=== PATIENT | female | born 1950 | race Hispanic/Latino ===

== ENCOUNTER 2017-05-15 11:39 | Emergency (ER) | payer MEDICARE ==
--- NOTE | 2017-05-15 14:21 | RAD REPORT ---
EXAM DESCRIPTION: RAD - Knee Right 3 View - 05/15/2017 1:46 pm CLINICAL HISTORY: Knee pain and swelling COMPARISON: None. FINDINGS: No fracture, dislocation or periosteal reaction.Moderate joint effusion is present. No chapito nt space narrowing. Degenerative meniscal calcifications are present. No air or foreign body in the s oft tissues. IMPRESSION: Degenerative meniscal changes are present. Moderate joint effusion. Clinical concerns for internal derangement or occult bony injury could be further assessed with MR im aging.
[2017-05-15] MEDS ORDERED: IBUPROFEN 400 MG TAB ONE (14:34)
--- NOTE | 2017-05-15 14:49 | ER ---
Nurse's Notes [facility] Name: Marilin Conner Age: 66 yrs Sex: Female : 1950 Arrival Date: 05/15/2017 Time: 11:44 Bed 25 [facility] MD: Diagnosis: Effusion, right knee Presentation: 05/15 12:08 Presenting complaint: Friend states: " She has been having leg trouble for a while and ph last night it got worse. She is having trouble walking and it feels like she has fluid in there." Pt reports pain in R calve that radiates up leg, swelling noted to outer aspect of R calve. Pt also reports SOB at rest, denies cardiac hx. Transition of care: patient was not received from another setting of care. Onset of symptoms was May 15, 2017. Care prior to arrival: None. 12:08 Method Of Arrival: Wheelchair ph 12:08 Acuity: JUAN C 3 ph Historical: - Allergies: 12:16 Demerol; ph - Home Meds: 12:16 mirtazapine 15 mg Oral tab 1 tab once daily [Active]; citalopram 10 mg tab 1.5 tab once ph daily [Active]; Bystolic 20 mg oral tab 1 tab once daily [Active]; losartan 100 mg oral tab 1 tab once daily [Active]; - PMHx: 12:16 Depression; Hypertension; ph - PSHx: 12:16 Hysterectomy; back surgery; ph - Immunization history:: Adult Immunizations unknown. - Social history:: Smoking status: Patient/guardian denies using tobacco. Screenin:17 Abuse screen: Denies threats or abuse. Denies injuries from another. Nutritional kr2 screening: No deficits noted. Tuberculosis screening: No symptoms or risk factors identified. Fall Risk Fall in past 12 months (25 points). Assessment: 14:09 General: Appears in no apparent distress. comfortable, well groomed, well developed, kr2 well nourished, Behavior is calm, cooperative, appropriate for age. Pain: Complains of pain in right knee Pain radiates to right leg Pain currently is 8 out of 10 on a pain scale. Quality of pain is described as aching, Is continuous, Alleviated by medications, rest, Aggravated by increased activity, weight bearing. Neuro: Level of Consciousness is awake, alert, obeys commands, Oriented to person, place, time, situation, Appropriate for age. Cardiovascular: Capillary refill < 3 seconds in bilateral fingers Patient's skin is warm and dry. Respiratory: Airway is patent Respiratory effort is even, unlabored, Respiratory pattern is regular, symmetrical. GI: Abdomen is flat, non-distended. : No signs and/or symptoms were reported regarding the genitourinary system. EENT: Nares are clear bilaterally Oral mucosa is moist. Derm: Skin is intact, is healthy with good turgor, Skin is pink, warm \\T\\ dry. Musculoskeletal: Swelling present in right knee. Injury Description: Patient reports falling 2 weeks ago and going about her normal activities and pain suddenly got worse and intense. 14:21 Reassessment: Patient appears in no apparent distress at this time. Patient and/or kr2 family updated on plan of care and expected duration. Pain level reassessed. Patient is alert, oriented x 3, equal unlabored respirations, skin warm/dry/pink. Assisted patient to restroom then back to bed, ultrasound in patient's room now. Vital Signs: 12:12 BP 162 / 68; Pulse 59; Resp 18; Temp 97.7; Pulse Ox 97% on R/A; Weight 63.5 kg; Pain ph 10/10; 15:11 BP 144 / 64; Pulse 60; Resp 17; Pulse Ox 99% on R/A; kr2 ED Course: 11:44 Patient arrived in ED. as 12:12 Triage completed. ph 12:16 Arm band placed on. ph 13:04 Mendy Garcia FNP-C is [facility]. kb 13:05 Burton Saavedra MD is Attending Physician. kb 13:19 Traci Ac, SARAH is Primary Nurse. kr2 14:17 Patient has correct armband on for positive identification. Bed in low position. Call kr2 light in reach. Side rails up X2. Adult w/ patient. Pulse ox on. NIBP on. Door closed. Lights dimmed. Warm blanket given. Head of bed elevated. 14:20 Ultrasound completed. Patient tolerated well. Notified BAR POINTER/PA mendy. sg3 15:12 No provider procedures requiring assistance completed. Patient did not have IV access kr2 during this emergency room visit. Administered Medications: 14:18 Drug: Ibuprofen 800 mg Route: PO; kr2 15:11 Follow up: Response: No adverse reaction; Pain is decreased kr2 Outcome: 14:49 Discharge ordered by MD. cook 15:12 Discharged to home via wheelchair, with family. kr2 15:12 Condition: good 15:12 Discharge instructions given to patient, family, Instructed on discharge instructions, follow up and referral plans. crutch walking, knee immobilizer use and care Demonstrated understanding of instructions, follow-up care, crutch walking, knee immobilizer care 15:13 Patient left the ED. kr2 Signatures: Mendy Garcia, CASUAL SHOE INSPECTOR-C CASUAL SHOE INSPECTOR-Shanti Chandler Patricia, SARAH RN ph Traci Ac RN RN kr2 Holly Rodriguez 3
--- NOTE | 2017-05-15 14:49 | EDPHYS ---
Physician Documentation [facility] Name: Marilin Conner Age: 66 yrs Sex: Female : 1950 Arrival Date: 05/15/2017 Time: 11:44 Bed 25 Private MD: ED Physician Burton Saavedra HPI: 05/15 13:17 This 66 yrs old Female presents to ER via Wheelchair with complaints of Knee kb Pain. 13:17 The patient presents with pain, that is acute, swelling, tenderness. The complaints kb affect the right knee. Context: The problem was sustained at home, resulted from an unknown cause, the patient can partially bear weight, must have assistance. Onset: The symptoms/episode began/occurred 4 day(s) ago, and became worse this morning. Modifying factors: The symptoms are alleviated by nothing. the symptoms are aggravated by movement, weight bearing, bending knee. Associated signs and symptoms: Pertinent positives: swelling, Pertinent negatives calf tenderness, fever, nausea, numbness, rash, tingling, vomiting, warmth, weakness. Treatment prior to arrival includes: no previous treatment. Severity of symptoms: At their worst the symptoms were moderate, in the emergency department the symptoms are unchanged. The patient has not experienced similar symptoms in the past. The patient has not recently seen a physician. Pt states she fell 3 weeks ago and started having right knee pain and swelling 4 days ago, worse today. Also reports knot on right calf that is painful. Historical: - Allergies: 12:16 Demerol; ph - Home Meds: 12:16 mirtazapine 15 mg Oral tab 1 tab once daily [Active]; citalopram 10 mg tab 1.5 tab once ph daily [Active]; Bystolic 20 mg oral tab 1 tab once daily [Active]; losartan 100 mg oral tab 1 tab once daily [Active]; - PMHx: 12:16 Depression; Hypertension; ph - PSHx: 12:16 Hysterectomy; back surgery; ph - Immunization history:: Adult Immunizations unknown. - Social history:: Smoking status: Patient/guardian denies using tobacco. ROS: 13:17 Constitutional: Negative for fever, chills, and weight loss, Cardiovascular: Negative kb for chest pain, palpitations, and edema, Respiratory: Negative for shortness of breath, cough, wheezing, and pleuritic chest pain, Abdomen/GI: Negative for abdominal pain, nausea, vomiting, diarrhea, and constipation, Back: Negative for injury and pain, : Negative for injury, bleeding, discharge, and swelling, Skin: Negative for injury, rash, and discoloration, Neuro: Negative for headache, weakness, numbness, tingling, and seizure. 13:17 MS/extremity: Positive for decreased range of motion, pain, swelling, tenderness, of the right knee. Exam: 13:17 Constitutional: This is a well developed, well nourished patient who is awake, alert, kb and in no acute distress. Head/Face: Normocephalic, atraumatic. Chest/axilla: Normal chest wall appearance and motion. Nontender with no deformity. No lesions are appreciated. Cardiovascular: Regular rate and rhythm with a normal S1 and S2. No gallops, murmurs, or rubs. Normal PMI, no JVD. No pulse deficits. Respiratory: Lungs have equal breath sounds bilaterally, clear to auscultation and percussion. No rales, rhonchi or wheezes noted. No increased work of breathing, no retractions or nasal flaring. Abdomen/GI: Soft, non-tender, with normal bowel sounds. No distension or tympany. No guarding or rebound. No evidence of tenderness throughout. Back: No spinal tenderness. No costovertebral tenderness. Full range of motion. Skin: Warm, dry with normal turgor. Normal color with no rashes, no lesions, and no evidence of cellulitis. Neuro: Awake and alert, GCS 15, oriented to person, place, time, and situation. Cranial nerves II-XII grossly intact. Motor strength 5/5 in all extremities. Sensory grossly intact. Cerebellar exam normal. Normal gait. 13:17 Musculoskeletal/extremity: Extremities: grossly normal except: noted in the right knee: decreased ROM, pain, swelling, tenderness, ROM: limited active range of motion due to pain, in the right knee, Circulation is intact in all extremities. Sensation intact. Weight bearing: can bear weight with assistance only. Vital Signs: 12:12 BP 162 / 68; Pulse 59; Resp 18; Temp 97.7; Pulse Ox 97% on R/A; Weight 63.5 kg; Pain ph 10/10; 15:11 BP 144 / 64; Pulse 60; Resp 17; Pulse Ox 99% on R/A; kr2 MDM: 13:05 Patient medically screened. kb 13:17 Data reviewed: vital signs, nurses notes. Data interpreted: Pulse oximetry: on room air kb is 97 %. Interpretation: normal. Counseling: I had a detailed discussion with the patient and/or guardian regarding: the historical points, exam findings, and any diagnostic results supporting the discharge/admit diagnosis, radiology results, the need for outpatient follow up, a orthopedic surgeon, to return to the emergency department if symptoms worsen or persist or if there are any questions or concerns that arise at home. 05/15 13:10 Order name: Knee Right 3 View XRAY kb 05/15 13:10 Order name: US Extremity Venous Uni Ltd kb 05/15 14:21 Order name: RAD; Complete Time: 14:42 EDMS 05/15 14:48 Order name: Knee Immobilizer; Complete Time: 15:11 kb 05/15 14:48 Order name: Crutches; Complete Time: 15:11 kb Administered Medications: 14:18 Drug: Ibuprofen 800 mg Route: PO; kr2 15:11 Follow up: Response: No adverse reaction; Pain is decreased kr2 Disposition: 05/15/17 14:49 Discharged to Home. Impression: Effusion, right knee. - Condition is Stable. - Discharge Instructions: Knee Effusion, [id number]. - Medication Reconciliation Form, Thank You Letter, Antibiotic Education, Prescription Opioid Use form. - Follow up: Emergency Department; When: As needed; Reason: Worsening of condition. Follow up: Private Physician; When: 2 - 3 days; Reason: Recheck today's complaints, Continuance of care, Re-evaluation by your physician. Addendum: 05/19/2017 07:14 Co-signature as Attending Physician, Burton Saavedra MD. g s Signatures: Dispatcher [employer] [facility] Mendy Garcia, JEET-Meche WILLISP-Vicki Sesay, RN RN Burton Chin MD MD gs Reaves, Karey, RN RN kr2
[2017-05-15 15:19] VITALS: TEMP 97.7
--- NOTE | 2017-05-15 15:19 | RAD REPORT ---
EXAM DESCRIPTION: VAS - Extremity Venous Uni Ltd - 05/15/2017 2:55 pm CLINICAL HISTORY: Leg pain and swelling COMPARISON: None. TECHNIQUE: Real-time sonographic evaluation of the right lower extremity deep venous systems was per formed. FINDINGS: Normal compressibility, flow augmentation, phasic flow and spontaneous flow are identified in the right lower extremity deep venous system. No intraluminal filling defects seen. Images are inadvertently labeled left. Examination was performed of the right lower extremity. IMPRESSION: No DVT in the right lower extremity.
[2017-05-15 15:21] VITALS: BP 144/64; O2SAT 99
== END 2017-05-15 15:13 | disposition home or self-care (01) ==
LOC: ER 11:39
DX: M25.461 Effusion, right knee (principal); W19.XXXA Unspecified fall, initial encounter; I10 Essential (primary) hypertension; F32.9 Major depressive disorder, single episode, unspecified; Z88.5 Allergy status to narcotic agent
CPT/HCPCS: 93971; 99284

== ENCOUNTER 2019-08-25 18:42 | Emergency (ER) | payer MEDICARE ==
--- OUTSIDE RECORDS SUMMARY | 2019-08-25 18:45 | XMS REPORT | Summary of Care ---
:1950 Author Organization [facility] Address [address] [place] [id number] Care Team Providers Name Role Phone Pcp, Patient Does Not Have A Primary Care Provider +[id number] Encounter Details Date Type Department Care Team Description 08/10/2019 Hospital Encounter [facility] Felipe Chambers MD Canceled (PATIENT Xiang [place] [address] [facility] [address] ) [address] [place] [place] [address] [address] [place], [place] [phone] Allergies Not on Filedocumented as of this encounter (statuses as of 08/11/2019) Medications Not on filedocumented as of this encounter (statuses as of 08/11/2019) Active Problems Not on filedocumented as of this encounter (statuses as of 08/11/2019) Social History Tobacco Use Types Packs/Day Years Used Date Never Assessed Sex Assigned at Date Recorded Not on file Job Start Date Occupation Industry Not on file Not on file Not on file Travel History Travel Start Travel End No recent travel history available. COVID-19 Exposure Response Date Recorded In the last month, have you been in contact with No / Unsure 08/10/2019 8:39 AM CDT someone who was confirmed or suspected to have Coronavirus / COVID-19? documented as of this encounter Last Filed Vital Signs Not on filedocumented in this encounter Plan of Treatment Health Maintenance Due Date Last Done Comments HEPATITIS C (HCV) SCREEN 1950 DTaP,Tdap,and Td Vaccines (1 - Tdap) 1961 Depression Screening 1962 Breast Cancer Screening (MAMMOGRAM) 1990 COLONOSCOPY 2000 Zoster Recombinant Vaccine (SHINGRIX) (1 of 2) 2000 Medicare Wellness Visit 12/09/2015 Osteoporosis Screening 12/09/2015 PNEUMOCOCCAL VACCINES 65+ (1 of 2 - PCV13) 12/09/2015 INFLUENZA VACCINE (Season Ended) 2019 documented as of this encounter Procedures Procedure Name Priority Date/Time Associated Diagnosis Comme nts NOTICE OF PRIVACY Routine 08/10/2019 8:42 AM PRACTICES CDT CONSENT/REFUSAL FOR Routine 08/10/2019 8:41 AM DIAGNOSIS AND TREATMENT CDT ASSIGNMENT OF BENEFITS Routine 08/10/2019 8:41 AM CDT documented in this encounter Results Not on filedocumented in this encounter Insurance Payer Benefit Plan / Subscriber ID Effective Phone Address T ype Group [facility] [id number] 2019-Jill fernandez [facility] HEALTHCARE - MEDICARE nt HMO MANAGED MEDICARE ADVANTAGE documented as of this encounter
--- OUTSIDE RECORDS SUMMARY | 2019-08-25 18:45 | XMS REPORT | Continuity of Care Document ---
:1950 Author Organization [facility] t Address [address] [place] [address] Care Team Providers Name Role Phone Reyes CAMPOS, Felipe Emmanuel Attending Clinician Problems Condition Condition Condition Status Onset Resolution Last Treating Co mments Source Name Details Category Date Date Treatment Clinician Date Osteoarthr Osteoarthr Problem Active [facility] itis of itis of [facility] multiple multiple Memori a joints joints l Outpati ent Clinics History of History of Problem Active [facility] fall fall [facility] Degenerati Degenerati Problem Active [facility] on disease on disease Britany kes - of medial of medial Jelani bao meniscus meniscus l of right of right Outpat i knee knee ent Clinics Benign Benign Problem Active [facility] essential essential [facility] - HTN HTN Memoria l Outpati ent Clinics GERD GERD Problem Active [facility] (gastroeso (gastroeso Britany kes - phageal phageal Memoria reflux reflux l disease) disease) Outpat i ent Clinics Hyperlipid Hyperlipid Problem Active [facility] emia emia [facility] Depression Depression Problem Active [facility] with with [facility] - anxiety anxiety Memoria l Outpati ent Clinics Seasonal Seasonal Problem Active [facility] allergies allergies [facility] Insomnia Insomnia Problem [facility] Back pain Back pain Problem Active [facility] Prepatella Prepatella Problem Active [facility] r effusion r effusion Britany kes - of right of right Memori a knee knee l Outpati ent Clinics Pain in Pain in Problem Active [facility] right knee right knee [facility]any kes - Memoria l Outpati ent Clinics Herniated Herniated Problem Active [facility] interverte interverte Britany kes - bral disc bral disc Jelani bao of lumbar of lumbar l spine spine [facility] Nicotine Nicotine Problem Active [facility] dependence dependence Britany kes - Memoria l [facility] Other Other Problem Active [facility] chronic chronic [facility] - pain pain Memoria l [facility] CKD CKD Problem Active [facility] (chronic (chronic [facility] - kidney kidney Memoria disease), disease), l stage III stage III Outp [facility] Clinics Screening Screening Diagnosis Active [facility] for for [facility] - malignant malignant Jelani bao neoplasm neoplasm l of breast of breast Outp [facility] ent Clinics Screening Screening Diagnosis Active [facility] for for [facility] - osteoporos osteoporos Me moria is is l [facility] Stress due Stress due Diagnosis Active [facility] to illness to illness Britany kes - of family of family Jelani bao member member l [facility] Anxiety Anxiety Problem Active [facility] Moderately Moderately Problem Active [facility] Allergies, Adverse Reactions, Alerts Allergy Allergy Status Severity Reaction(s) Onset Inactive Treating Comm ents Source Name Type Date Date Clinician Demerol Adverse Active Info Not [facility] Reaction [facility] Lisinopr Adverse Active Info Not [facility] il Reaction Available [facility] Medications Ordered Filled Start Stop Current Ordering Indication Dosage Frequency Signature Comments Components Source Medication Medication Date Date Medication? Clinician (SIG) Name Name Telmisartan Telmisartan Yes Na Coates [address] [facility] Cetirizine Cetirizine Yes Na Coates [address] [facility] [address] HCl HCl [facility] Clonidine Clonidine Yes Na Coates [address] [facility] HCl HCl at bedtime [facility] Mirtazapine Mirtazapine Yes Na Coates [address] [facility] at bedtime [facility] Bystolic Bystolic Yes Na Coates TAKE [address] TABLET BY [facility] - MOUTH ONCE Memoria A DAY l [facility] Xanax Xanax Yes Na Coates [address] [address] kes - Memoria l Outpati ent Clinics Telmisartan Telmisartan Yes Na Coates [address] [facility] Celexa Celexa Yes Na Coates TAKE [address] [facility] TABLET BY [facility] - MOUTH ONCE Memoria A DAY l Outpati ent Clinics Bystolic Bystolic Yes Na Coates [address] [facility] Pantoprazol Pantoprazol Yes Na Coates TAKE [address] [facility] e Sodium e Sodium TABLET BY Britany kes - MOUTH ONCE Memoria A DAY l Outpati ent Clinics Pantoprazol Pantoprazol Yes Na Coates [address] e Sodium e Sodium [facility] Rosuvastati Rosuvastati Yes Na Coates TAKE [address] [facility] n Calcium n Calcium TABLET BY [facility] - MOUTH ONCE Memoria A DAY l Outpati ent Clinics Flonase Flonase Yes Na Coates [address] [facility] each [facility] - nostril [facility] l Out[facility] ent Clinics Imitrex Imitrex Yes Na Coates [address] [facility] Immunizations Ordered Filled Immunization Date Status Comments Sourc e Immunization Name Name FluAD FluAD 2019-01-[address] [facility] Procedures This patient has no known procedures. Encounters Start End Encounter Admission Attending Care Care Encounter Source Date/Time Date/Time Type Type Clinicians Facility Department ID 2019-08-14 2019-08-14 [facility] [id number] [address] 13:40:00 13:40:00 [facility] Family Medicine [facility] Outpati ent Clinics 2019-08-10 2019-08-10 [place] [id number] 08:40:00 08:40:00 Encounter M Bowman [id number] [place] [id number] [place] [id number] 2019-08-10 2019-08-10 [facility] [id number] 08:40:00 08:40:00 Encounter M Bowman [id number] [place] [id number] [place] [id number] 2019-04-05 2019-04-05 [facility] [id number] 08:48:00 08:48:[address] [facility] - [address] [facility] Medicine Outpati ent Clinics 2019-01-26 2019-01-26 [facility] [id number] 13:20:00 13:20:[address] [facility] - [address] [facility] Medicine Outpati ent Clinics 2018-12-19 2018-12-19 [facility] [id number] 09:48:00 09:48:00 t [address] [employer] [facility] s - Drive [facility] Medicine Outpati ent Clinics 2018-10-27 2018-10-27 [facility] [id number] [address] 14:00:00 14:00:00 t [address] [employer] s - Drive [facility] Medicine Outpati ent Clinics 2018-09-26 2018-09-26 [facility] [id number] 16:40:00 16:40:00 t [address] [employer] [facility] s - Drive [facility] Medicine Outpati ent Clinics 2018-06-12 2018-06-12 [facility] [id number] 13:00:00 13:00:00 t [address] [employer] - Drive [facility] Medicine Outpati ent Clinics 2018-05-09 2018-05-09 [facility] [id number] 14:00:00 14:00:00 t [address] [employer] s - Drive [facility] Medicine Outpati ent Clinics 2018-03-03 2018-03-03 [facility] [id number] [address] 10:17:00 10:17:[address] [facility] s - [address] [facility] Medicine Outpati ent Clinics 2018-02-07 2018-02-07 [facility] [id number] 14:30:00 14:30:00 t [address] [employer] s - Drive [facility] Medicine Outpati ent Clinics 2017-11-08 2017-11-08 [facility] [id number] 15:30:00 15:30:00 t [address] [employer] [facility] ent Clinics 2017-09-13 2017-09-13 [facility] [id number] 13:30:00 13:30:00 t [facility] and [facility] - and [facility] ent Clinics 2017-08-01 2017-08-01 [facility] [id number] 14:15:00 14:15:00 t [employer] [facility] ent Clinics 2017-05-25 2017-05-25 [facility] [id number] 14:30:00 14:30:00 t [employer] [facility] ent Clinics Results This patient has no known results.
--- OUTSIDE RECORDS SUMMARY | 2019-08-25 18:45 | XMS REPORT | Summary of Care ---
:1950 Author Organization [facility] Address [address] [place] [id number] Care Team Providers Name Role Phone Pcp, Patient Does Not Have A Primary Care Provider +[id number] 0-0000 Reason for Referral Radiology Services (Routine) Status Reason Specialty Diagnoses / Referred By Referred To Procedures Contact Contact Authorized Diagnostic Diagnoses Right upper quadrant pain Left upper quadrant pain Bloating Felipe Chambers, Radiology Procedures NM HEPATOBILIARY W INTERVENTION [address] [place] [id number] Reason for Visit Radiology Services (Routine) Status Reason Specialty Diagnoses / Referred By Referred To Procedures Contact Contact Authorized Diagnostic Diagnoses Right upper quadrant pain Left upper quadrant pain Bloating Felipe Chambers, Radiology Procedures NM HEPATOBILIARY W INTERVENTION [address] [place] [id number] Encounter Details Date Type Department Care Team Description 08/10/2019 Hospital Encounter [facility] Felipe Chambers MD Canceled (PATIENT [address] REFUSE D CARE Nuclear Medicine DR ) [address] [place] [address] Drive [address] [place], [place] [phone] Allergies Not on Filedocumented as of this [...] filedocumented in this encounter Plan of Treatment Name Type Priority Associated Diagnoses Order S chedule NM HEPATOBILIARY W IMAGING Routine Right upper quadrant 1 Occurrences starting INTERVENTION pain 08/10/2019 until Left upper quadrant 08/10/19 20 pain Bloating Health Maintenance Due Date Last Done Comments HEPATITIS C (HCV) SCREEN 1950 DTaP,Tdap,and Td Vaccines (1 - Tdap) 1961 Depression Screening 1962 Breast Cancer Screening (MAMMOGRAM) 1990 COLONOSCOPY 2000 Zoster Recombinant Vaccine (SHINGRIX) (1 of 2) 2000 Medicare Wellness Visit 12/09/2015 Osteoporosis Screening 12/09/2015 PNEUMOCOCCAL VACCINES 65+ (1 of 2 - PCV13) 12/09/2015 INFLUENZA VACCINE (Season Ended) 2019 documented as of this encounter Results Not on filedocumented in this encounter Visit Diagnoses Diagnosis Right upper quadrant pain Abdominal pain, right upper quadrant Left upper quadrant pain Abdominal pain, left upper quadrant Bloating Flatulence, eructation, and gas pain documented in this encounter Insurance Payer Benefit Plan / Subscriber ID Effective Phone Address T e Group [facility] [id number] 2019-[facility] - MEDICARE HMO MANAGED MEDICARE ADVANTAGE documented as of this encounter
--- OUTSIDE RECORDS SUMMARY | 2019-08-25 18:45 | XMS REPORT ---
:1950 Author Organization [employer] Care Team Providers Name Role Phone Coates, Na Provider Role Unavailable Allergies, Adverse Reactions, Alerts Substance Reaction Event Type Lisinopril Info Not Available Drug Allergy Demerol Info Not Available Drug Allergy Problems Problem Type Condition Code Onset Dates Condition Statu s Assessment Screening for malignant neoplasm of Z12.39 Active breast Assessment Screening for osteoporosis Z13.820 A ctive Assessment Stress due to illness of family Z63.79 Active member Assessment Seasonal allergies J30.2 Active Assessment Gastroesophageal reflux disease, K21.9 Active esophagitis presence not specified Problem Nicotine dependence F17.200 Active Assessment Anxiety F41.9 Active Problem Osteoarthritis of multiple joints M15.9 Active Assessment 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 Active Problem 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 Problem Allergic rhinitis, seasonal J30.2 Active Problem History of fall Z91.81 Active Problem 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 Active Problem Seasonal allergies J30.2 Active Assessment Benign essential HTN I10 Active Problem Anxiety F41.9 Active Assessment Hyperlipidemia E78.5 Active Problem Pain in right knee M25.561 Active Problem Other chronic pain G89.29 Active Problem CKD (chronic kidney disease), stage N18.3 Active III Problem Gastroesophageal reflux disease, K21.9 Active esophagitis presence not specified Problem Back pain M54.9 Active Problem Insomnia G47.00 Active Problem Hyperlipidemia E78.5 Active Problem Depression with anxiety F41.8 Acti ve Problem Prepatellar effusion of right knee M25.461 Active Problem Herniated intervertebral disc of M51.26 Active lumbar spine Problem GERD (gastroesophageal reflux K21.9 Active disease) Problem Benign essential HTN I10 Active Medications Medication Code Code Instructions Start End Status Dosage System Date Date Cetirizine HCl [facility] 26636567585 10 MG Orally Active 1 tablet Once a day Clonidine HCl ND 85895010056 0.1 MG Active TAKE 1 TABLET BY MOUTH 3 TIMES DAILY Telmisartan [facility] 16595123827 80 MG Orally Active 1 t ablet Once a day Mirtazapine [facility] 19932955377 15 MG Active TAKE 2 TABLETS BY MOUTH ONCE A DAY AT BEDTIME [facility] 43970986810 20 MG Orally Active 1 tabl et Once a day Xanax [facility] 44176020093 0.5 MG Orally Active 1 tabl et once a day prn anxiety/ panic attacks Telmisartan [facility] 49686460130 80 MG Orally Active 1 t ablet Once a day Celexa [facility] 82681894222 40 MG Orally Active 1 table t Once a day [facility] 66039693395 20 MG Orally Active 1 tabl et Once a day Celexa [facility] 89910871855 40 MG Active TAKE 1 TABLET BY MOUTH ONCE A DAY Pantoprazole [facility] 90242414774 40 MG Active TAKE 1 Sodium TABLET BY MOUTH ONCE A DAY Pantoprazole [facility] 14059571839 40 MG Orally Inactive 1 tablet Sodium Once a day Clonidine HCl [facility] 02553013992 0.1 MG Orally Active 1 tablet three times a at bedtime day Rosuvastatin [facility] 08761401080 10 MG Active TAKE 1 Calcium TABLET BY MOUTH ONCE A DAY Mirtazapine [facility] 17875043368 15 MG Orally Active 2 t ablets Once a day at bedtime [facility] 89164015121 20 MG Active TAKE 1 TABLET BY MOUTH ONCE A DAY Flonase [facility] 91858721267 50 MCG/ACT Active 2 spray i n Nasally Once a each day nostril Imitrex [facility] 41512925425 50 MG Orally Active 1 table t Twice a day as needed Results No Known Results Summary Purpose [employer]ClinicalWorks Submission
[2019-08-25] MEDS ORDERED: ONDANSETRON 4 MG/2 ML VIAL ONE (19:41)
[2019-08-25] MEDS ORDERED: MORPHINE 4 MG/ML SYR ONE ×2 (19:41→20:50)
[2019-08-25] MEDS ORDERED: dexAMETHasone 10 MG/ML VIAL ONE (19:41)
--- NOTE | 2019-08-25 21:11 | ER ---
Nurse's Notes [facility] Name: Marilin Conner Age: 68 yrs Sex: Female : 1950 Arrival Date: 08/25/2019 Time: 18:56 Bed 4 Private MD: Diagnosis: Muscle spasm of back;Radiculopathy, lumbosacral region Presentation: 08/24 19:22 Chief complaint: Patient states: low back pain that radiates to right leg that started wh yesterday. Coronavirus screen: Proceed with normal triage. Patient denies a cough. Patient denies shortness of breath or difficulty breathing. Patient denies measured and/or subjective temperature greater than 100.4F prior to today's visit. Patient denies travel on a cruise ship or to a country the [facility] currently lists as an affected area. Patient denies contact with known and/or suspected case of COVID-19. Ebola Screen: Patient negative for fever greater than or equal to 101.5 degrees Fahrenheit, and additional compatible Ebola Virus Disease symptoms Patient denies exposure to infectious person. Initial Sepsis Screen: Does the patient meet any 2 criteria? No. Patient's initial sepsis screen is negative. Does the patient have a suspected source of infection? No. Patient's initial sepsis screen is negative. Onset of symptoms was August 25, 2019. 19:22 Method Of Arrival: Wheelchair 19:22 Acuity: JUAN C 4 19:27 Risk Assessment: Do you want to hurt yourself or someone else? Patient reports no desire to harm self or others. Historical: - Allergies: 19:26 Demerol; - PMHx: 19:26 Depression; Hypertension; - PSHx: 19:26 Back Surgery; - Immunization history:: Adult Immunizations not up to date. - Social history:: Smoking status: Patient/guardian denies using. - Family history:: not pertinent. - Hospitalizations: : No recent hospitalization is reported. Screenin:26 Abuse screen: Denies threats or abuse. Denies injuries from another. Nutritional screening: No deficits noted. Tuberculosis screening: No symptoms or risk factors identified. Fall Risk None identified. Assessment: 19:35 General: Appears in no apparent distress. uncomfortable, Behavior is calm, cooperative, rr5 appropriate for age. 19:35 Pain: Complains of pain in back Pain radiates to right leg Pain currently is 8 out of rr5 10 on a pain scale. Quality of pain is described as aching, Pain began gradually, 1 day ago. Is intermittent. Neuro: Level of Consciousness is awake, alert, obeys commands, Oriented to person, place, time, situation. Cardiovascular: Capillary refill < 3 seconds Patient's skin is warm and dry. Respiratory: Airway is patent Respiratory effort is even, unlabored, Respiratory pattern is regular, symmetrical. GI: No signs and/or symptoms were reported involving the gastrointestinal system. : No signs and/or symptoms were reported regarding the genitourinary system. EENT: No signs and/or symptoms were reported regarding the EENT system. Derm: Skin is intact, is healthy with good turgor, Skin temperature is warm. Musculoskeletal: Capillary refill < 3 seconds, Reports pain in back. 20:40 Reassessment: Patient appears in no apparent distress at this time. Patient is alert, rr5 oriented x 3, equal unlabored respirations, skin warm/dry/pink. Patient states symptoms have not improved. 21:20 Reassessment: Patient appears in no apparent distress at this time. Patient is alert, rr5 oriented x 3, equal unlabored respirations, skin warm/dry/pink. discharge instruction given and explained without complaints made. awaiting for her sister to come for the transport. Patient states symptoms have improved. 22:00 Reassessment: Patient appears in no apparent distress at this time. Patient is alert, rr5 oriented x 3, equal unlabored respirations, skin warm/dry/pink. discharge instruction given and explained without complaints made. Patient states symptoms have improved. Vital Signs: 19:30 BP 202 / 73; Pulse 53; Resp 18; Temp 97.3; Pulse Ox 95% ; Weight 61.23 kg; Height 5 ft. 1 in. (154.94 cm); Pain 9/10; 20:39 BP 184 / 79; rn 20:52 BP 171 / 74; Pulse 61; Resp 19; Pulse Ox 99% ; rr5 22:00 BP 170 / 85; Pulse 62; Resp 17; Pulse Ox 98% on R/A; Pain 5/10; rr5 19:30 Body Mass Index 25.51 (61.23 kg, 154.94 cm) ED Course: 18:56 Patient arrived in ED. fj1 19:06 Desean Mcclellan, RN is Primary Nurse. rr5 19:09 Yves Garner MD is Attending Physician. rn 19:25 Triage completed. 19:27 Arm band placed on right wrist. 19:27 Patient has correct armband on for positive identification. Bed in low position. Call light in reach. Side rails up X 1. Pulse ox on. NIBP on. 19:50 Inserted saline lock: 20 gauge in right forearm, using aseptic technique. rr5 22:00 No provider procedures requiring assistance completed. IV discontinued, intact, rr5 bleeding controlled, No redness/swelling at site. Pressure dressing applied. Administered Medications: 19:50 Drug: Decadron - Dexamethasone 10 mg Route: IVP; Site: right forearm; rr5 22:00 Follow up: Response: No adverse reaction rr5 19:52 Drug: Zofran (Ondansetron) 4 mg Route: IVP; Site: right forearm; rr5 21:00 Follow up: Response: No adverse reaction rr5 19:55 Drug: morphine 4 mg Route: IVP; Site: right forearm; rr5 19:55 Follow up: Response: RASS: Alert and Calm (0) rr5 20:43 Drug: morphine 4 mg {Note: RASS 0.} Route: IVP; Site: right forearm; 22:00 Follow up: Response: No adverse reaction; Pain is decreased; RASS: Alert and Calm (0) rr5 Outcome: 21:11 Discharge ordered by . rn 22:00 Discharged to home via wheelchair, with family. rr5 22:00 Condition: stable 22:00 Discharge instructions given to patient, family, Instructed on discharge instructions, the need for admit, medication usage, Demonstrated understanding of instructions, follow-up care, medications, Prescriptions given X 3. 22:02 Patient left the ED. rr5 Signatures: Yves Garner MD MD rn Habalo, Winsy Desean Mcclellan RN RN rr5 Ethan Chirinos fj
--- NOTE | 2019-08-25 21:11 | EDPHYS ---
Physician Documentation [facility] Name: Marilin Conner Age: 68 yrs Sex: Female : 1950 Arrival Date: 08/25/2019 Time: 18:56 Bed 4 Private MD: ED Physician Yves Garner HPI: 08/24 19:28 This 68 yrs old Female presents to ER via Wheelchair with complaints of Low rn Back Pain. 19:28 The patient presents with pain that is acute. The symptoms are located in the low back. rn The pain radiates to the right leg. Onset: The symptoms/episode began/occurred yesterday. Modifying factors: The patient symptoms are alleviated by remaining still, the patient symptoms are aggravated by bending. Severity of symptoms: At their worst the symptoms were moderate, in the emergency department the symptoms are unchanged. The patient has experienced similar episodes in the past. Reports right lower back pain, radiates to right leg, worse with palpation and movement, no acute trauma, has had before and has had 2 back surgeries in past. No fever. NO abd pain. No weakness of legs. No bowel/bladder complaints. . Historical: - Allergies: 19:26 Demerol; wh - PMHx: 19:26 Depression; Hypertension; - PSHx: 19:26 Back Surgery; - Immunization history:: Adult Immunizations not up to date. - Social history:: Smoking status: Patient/guardian denies using. - Family history:: not pertinent. - Hospitalizations: : No recent hospitalization is reported. ROS: 19:28 Constitutional: Negative for fever, chills, and weight loss, Eyes: Negative for injury, rn pain, redness, and discharge, Neck: Negative for injury, pain, and swelling, Cardiovascular: Negative for chest pain, palpitations, and edema, Respiratory: Negative for shortness of breath, cough, wheezing, and pleuritic chest pain, Abdomen/GI: Negative for abdominal pain, nausea, vomiting, diarrhea, and constipation, Back: Negative for injury : Negative for injury, bleeding, discharge, and swelling, MS/Extremity: Negative for injury and deformity, Skin: Negative for injury, rash, and discoloration, Neuro: Negative for headache, weakness, numbness, tingling, and seizure. Exam: 19:28 Constitutional: This is a well developed, well nourished patient who is awake, alert, rn appears uncomfortable. Head/Face: Normocephalic, atraumatic. Cardiovascular: Regular rate and rhythm. No pulse deficits. Respiratory: No increased work of breathing, no retractions or nasal flaring. Abdomen/GI: soft, non-tender, no masses/pulsatile masses Back: No spinal tenderness. Skin: Warm, dry with normal turgor. Normal color with no rashes, no lesions, and no evidence of cellulitis. MS/ Extremity: Pulses equal, no cyanosis. Neurovascular intact. Full, normal range of motion. Equal circumference. + straight leg raise test Neuro: Awake and alert, GCS 15, oriented to person, place, time, and situation. Cranial nerves II-XII grossly intact. Motor strength 5/5 in all extremities. Sensory grossly intact. Vital Signs: 19:30 BP 202 / 73; Pulse 53; Resp 18; Temp 97.3; Pulse Ox 95% ; Weight 61.23 kg; Height 5 ft. wh 1 in. (154.94 cm); Pain 9/10; 20:39 BP 184 / 79; rn 20:52 BP 171 / 74; Pulse 61; Resp 19; Pulse Ox 99% ; rr5 22:00 BP 170 / 85; Pulse 62; Resp 17; Pulse Ox 98% on R/A; Pain 5/10; rr5 19:30 Body Mass Index 25.51 (61.23 kg, 154.94 cm) MDM: 19:09 Patient medically screened. rn 21:09 Differential diagnosis: arthritis, strain, sciatica. Data reviewed: vital signs, nurses rn notes, and as a result, I will discharge patient. Counseling: I had a detailed discussion with the patient and/or guardian regarding: the historical points, exam findings, and any diagnostic results supporting the discharge/admit diagnosis, the need for outpatient follow up, to return to the emergency department if symptoms worsen or persist or if there are any questions or concerns that arise at home. Response to treatment: the patient's symptoms have markedly improved after treatment, and as a result, I will discharge patient. Special discussion: I discussed with the patient/guardian in detail that at this point there is no indication for admission to the hospital. It is understood, however, that if the symptoms persist or worsen the patient needs to return immediately for re-evaluation. Based on the history and exam findings, there is no indication for further emergent testing or inpatient evaluation. I discussed with the patient/guardian the need to see the back specialist for further evaluation of the symptoms. ED course: Reports improved pain, repeat exam still benign abdominal exam, normal neuro exam, improved BP with pain control, will dc home with pcp and back specialist f/u. . 21:13 ED course: [place], scores 040/080/000/110. rn 08/24 19:21 Order name: IV Start; Complete Time: 19:53 rn Administered Medications: 19:50 Drug: Decadron - Dexamethasone 10 mg Route: IVP; Site: right forearm; rr5 22:00 Follow up: Response: No adverse reaction rr5 19:52 Drug: Zofran (Ondansetron) 4 mg Route: IVP; Site: right forearm; rr5 21:00 Follow up: Response: No adverse reaction rr5 19:55 Drug: morphine 4 mg Route: IVP; Site: right forearm; rr5 19:55 Follow up: Response: RASS: Alert and Calm (0) rr5 20:43 Drug: morphine 4 mg {Note: RASS 0.} Route: IVP; Site: right forearm; wh 22:00 Follow up: Response: No adverse reaction; Pain is decreased; RASS: Alert and Calm (0) rr5 Disposition: 08/25/19 21:11 Discharged to Home. Impression: Muscle spasm of back, Radiculopathy, lumbosacral region. - Condition is Stable. - Discharge Instructions: Lumbosacral Radiculopathy, Muscle Cramps and Spasms, Back Exercises. - Prescriptions for Ultram 50 mg Oral Tablet - take 1 tablet by ORAL route every 6 hours As needed; 15 tablet. Cyclobenzaprine 10 mg Oral Tablet - take 1 tablet by ORAL route every 8 hours As needed; 15 tablet. Medrol (Jesu) 4 mg Oral Tablets, Dose Pack - take 1 tablet by ORAL route as directed - follow package instructions; 1 packet. - Medication Reconciliation Form, Thank You Letter, Antibiotic Education, Prescription Opioid Use form. - Follow up: Private Physician; When: As needed; Reason: Recheck today's complaints, Re-evaluation by your physician. - Problem is new. - Symptoms have improved. Signatures: Yves Garner MD MD rn Habalo, Winsy wh Roque, Raymond, RN RN rr5 Corrections: (The following items were deleted from the chart) 22:02 21:11 08/25/2019 21:11 Discharged to Home. Impression: Muscle spasm of back; rr5 Radiculopathy, lumbosacral region. Condition is Stable. Forms are Medication Reconciliation Form, Thank You Letter, Antibiotic Education, Prescription Opioid Use. Follow up: Private Physician; When: As needed; Reason: Recheck today's complaints, Re-evaluation by your physician. Problem is new. Symptoms have improved. rn
[2019-08-25 22:09] VITALS: TEMP 97.3
[2019-08-25 22:29] VITALS: BP 171/74; O2SAT 99
== END 2019-08-25 22:02 | disposition home or self-care (01) ==
LOC: ER 18:42
DX: M62.830 Muscle spasm of back (principal); M54.17 Radiculopathy, lumbosacral region; I10 Essential (primary) hypertension; Z88.5 Allergy status to narcotic agent
CPT/HCPCS: 96375; 96374; 99284; J1100; J2405

== ENCOUNTER 2021-09-24 15:36 | Emergency (ER) | payer OTHER ==
--- OUTSIDE RECORDS SUMMARY | 2021-09-24 15:41 | XMS REPORT | Continuity of Care Document ---
:1950 Author Organization [facility] t Address [address] [place] [address] Care Team Providers Name Role Phone Rina Coates Attending Clinician Unavailable Yeimi Yepez MD Attending Clinician YEIMI YEPEZ Attending Clinician Unavailable Payers Payer Name Policy Type Policy Number Effective Date Expiration Date S ource Problems This patient has no known problems. Allergies, Adverse Reactions, Alerts Allergy Allergy Status Severity Reaction(s) Onset Inactive Treating Comm ents Source Name Type Date Date Clinician NO KNOWN Drug Active Univers ALLERGIE Class ity of S [facility] Demerol Adverse Active Info Not Common Reaction Available [facility] Lisinopr Adverse Active Info Not Commo n il Reaction Available [facility] Social History Social Habit Start Date Stop Date Quantity Comments Source [facility] Exposure to SARS-CoV-2 Not sure [facility] [place] (event) [facility] Smoking Status Start Date Stop Date Source Unknown if ever smoked [facility] Medications Ordered Filled Start Stop Current Ordering Indication Dosage Frequency Signature Comments Components Source Medication Medication Date Date Medication? Clinician (SIG) Name Name Diclofenac Diclofenac 2019-0 2020- No Rina Coates 2 gram Common Sodium Sodium 08-29 applicatio Spir it 00:00: 00:00 n to - [facility] 00 :00 affected [facility] Cyclobenzap Cyclobenzap 2020-0 2020- No Na Coates 1 tablet Common rine HCl rine HCl 08-29 at bedtime Spirit 00:00: 00:00 - [facility] 00 :00 [facility] Telmisartan Telmisartan Yes Na Coates 1 tablet Common [facility] Cetirizine Cetirizine Yes Na Coates 1 tablet Common HCl HCl [facility] Clonidine Clonidine Yes Na Coates TAKE 1 Common HCl HCl TABLET BY Spirit MOUTH 3 - CHI TIMES [facility] Mirtazapine Mirtazapine Yes Na Coates TAKE 2 Common TABLETS BY Spirit MOUTH ONCE - [facility]I A DAY AT [facility] Bystolic Bystolic Yes Na Coates TAKE 1 Co mmon TABLET BY Spirit MOUTH ONCE - CHI A DAY [facility] Xanax Xanax Yes Na Coates 1 tablet Common [facility] Telmisartan Telmisartan Yes Na Coates 1 tablet Common [facility] Celexa Celexa Yes Na Coates TAKE 1 Common TABLET BY Spirit MOUTH ONCE - CHI A DAY [facility] Bystolic Bystolic Yes Na Coates 1 tablet [facility] Pantoprazol Pantoprazol Yes Na Coates TAKE 1 Common e Sodium e Sodium TABLET BY Sp lee MOUTH ONCE - CHI A DAY [facility] Rosuvastati Rosuvastati Yes Na Coates TAKE 1 Common n Calcium n Calcium TABLET BY Spirit MOUTH ONCE - CHI A DAY [facility] Flonase Flonase Yes Na Coates 2 spray in Common each Spirit nostril [facility] Imitrex Imitrex Yes Na Coates 1 tablet Co mmon as needed [facility] Omeprazole Omeprazole Yes Na Coates 1 capsule Common 30 minutes Spirit before - [facility]I morning [facility] Immunizations Ordered Immunization Filled Immunization Date Status Commen ts Source Name Name FluAD FluAD 2019-01-26 Completed Common Spirit 00:00:00 [facility] Procedures Procedure Date / Time Performed Performing Clinician [facility] NOTICE OF PRIVACY 2019-08-10 13:42:13 Doctor Unassigned, No [facility] PRACTICES Name Medical Branch CONSENT/REFUSAL FOR 2019-08-10 13:41:53 Doctor Unassigned, No [facility] DIAGNOSIS AND Name Medical Branch TREATMENT ASSIGNMENT OF BENEFITS 2019-08-10 13:41:34 Doctor Unassigned, No [facility] Name Medical Branch Encounters Start End Encounter Admission Attending Care Care Encounter Source Date/Time Date/Time Type Type Clinicians Facility Department ID 2021-09-08 Outpatient Coates, Na STLMLC STLMLC [id number] 2 Common 10:46:01 [facility] 2021-03-18 Outpatient Coates, Na STLMLC STLMLC [id number] 2 Common 13:33:15 [facility] 2021-03-18 Outpatient Coates, Na STLMLC STLMLC [id number] 2 Common 13:20:53 [id number] [facility] 2021-03-18 Outpatient Coates, Na STLMLC STLMLC [id number] 2 Common 13:20:10 [id number] [facility] 2021-03-18 Outpatient Coates, Na STLMLC STLMLC [id number] 2 Common 13:18:12 [id number] [facility] 2021-03-18 Outpatient Coates, Na STLMLC STLMLC [id number] 2 Common 13:16:41 [id number] [facility] 2021-03-18 Outpatient Coates, Na STLMLC STLMLC [id number] 2 Common 13:12:26 [id number] [facility] 2021-03-18 Outpatient Coates, Na STLMLC STLMLC [id number] 2 Common 13:06:18 [id number] [facility] 2021-03-18 Outpatient Coates, Na STLMLC STLMLC [id number] 2 Common 12:50:52 [id number] [facility] 2021-03-18 Outpatient Coates, Na STLMLC STLMLC [id number] 2 Common 12:50:03 [id number] [facility] 2021-03-18 Outpatient Coates, Na STLMLC STLMLC [id number] 2 Common 12:39:34 [id number] [facility] 2021-03-18 Outpatient Coates, Na STLMLC STLMLC [id number] 2 Common 12:38:55 [id number] [facility] 2021-03-18 Outpatient Coates, Na STLMLC STLMLC [id number] 2 Common 12:37:19 [id number] [facility] 2021-03-18 Outpatient Coates, Na STLMLC STLMLC [id number] 2 Common 12:33:45 [id number] [facility] 2021-03-18 Outpatient Coates, Na STLMLC STLMLC [id number] 2 Common 12:26:28 [id number] [facility] 2021-03-18 Outpatient Coates, Na STLMLC STLMLC [id number] 2 Common 12:25:55 [id number] [facility] 2021-03-18 Outpatient Coates, Na STLMLC STLMLC [id number] 2 Common 12:25:14 [id number] [facility] 2021-03-18 Outpatient Coates, Na STLMLC STLMLC [id number] 2 Common 11:58:53 [id number] [facility] 2021-03-18 Outpatient Coates, Na STLMLC STLMLC [id number] 2 Common 11:58:34 [id number] [facility] 2021-03-18 Outpatient Coates, Na STLMLC STLMLC [id number] 2 Common 11:46:50 [id number] [facility] 2021-03-18 Outpatient Coates, Na STLMLC STLMLC [id number] 2 Common 11:33:18 [id number] [facility] 2021-03-18 Outpatient Coates, Na STLMLC STLMLC [id number] 2 Common 11:32:44 [id number] [facility] 2021-03-18 Outpatient Coates, Na STLMLC STLMLC [id number] 2 Common 11:30:15 [id number] [facility] 2021-03-18 Outpatient Coates, Na STLMLC STLMLC [id number] 2 Common 11:28:00 [id number] [facility] 2021-03-18 Outpatient Rina Coates STLMLC STLMLC [id number] 2 Common 11:27:15 [id number] [facility] 2021-06-23 2021-06-23 ambulatory STLMLC STLMLC [id number] Common 00:00:00 00:00:00 [facility] 2020-10-09 2020-10-09 Outpatient STLMLC STLMLC [id number] Common 00:00:00 00:00:00 [facility] 2020-08-21 2020-08-21 Outpatient STLMLC STLMLC [id number] Common 00:00:00 00:00:00 [facility] 2020-08-08 2020-08-08 Outpatient STLMLC STLMLC [id number] Common 00:00:00 00:00:00 [facility] 2020-07-11 2020-07-11 Outpatient STLMLC STLMLC [id number] Common 00:00:00 00:00:00 [facility] 2020-07-11 2020-07-11 Outpatient STLMLC STLMLC [id number] Common 00:00:00 00:00:00 [facility] 2020-06-02 2020-06-02 Outpatient STLMLC STLMLC [id number] Common 00:00:00 00:00:00 [facility] 2020-05-02 2020-05-02 Outpatient STLMLC STLMLC [id number] Common 00:00:00 00:00:00 [facility] 2020-04-02 2020-04-02 Outpatient STLMLC STLMLC [id number] Common 00:00:00 00:00:00 [facility] 2020-03-20 2020-03-20 Outpatient STLMLC STLMLC [id number] Common 00:00:00 00:00:00 [facility] 2020-03-10 2020-03-10 Outpatient STLMLC STLMLC [id number] Common 00:00:00 00:00:00 [facility] 2019-12-18 2019-12-18 Outpatient STLMLC STLMLC [id number] Common 00:00:00 00:00:00 [facility] 2019-09-17 2019-09-17 Outpatient Brazestefany Carmonat [id number] Common 11:40:00 11:40:[address] [facility] 2019-08-30 2019-08-30 [facility] [id number] Common 16:20:00 16:20:[address] [facility] 2019-08-14 2019-08-14 [facility] [id number] Common 13:40:00 13:40:[address] [facility] 2019-08-10 2019-08-10 [facility] [id number] Univers 08:40:00 08:40:00 Encounter [place] [id number] [place] [id number] [facility] [id number] [facility] 805 Branch 2019-08-10 2019-08-10 [facility] [id number] 08:40:00 08:40:00 Encounter [place] [id number] [place] [id number] [place] [id number] 2019-08-10 2019-08-10 [facility] [id number] 08:40:00 08:40:00 Encounter [place] [id number] [place] [id number] [place] [id number] 2019-08-10 2019-08-10 [facility] [id number] Univers 08:40:00 08:40:00 Encounter [place] [id number] [facility] [place] [id number] [facility] [id number] [place] [address] Branch 2019-08-10 2019-08-10 Outpatient YEIMI GORDON [facility] [id number] Univers 00:00:00 00:00:00 ity of [facility] 2019-04-05 2019-04-05 [facility] [id number] Common 08:48:00 08:48:[address] [facility] 2019-01-26 2019-01-26 [facility] [id number] Common 13:20:00 13:20:[address] [facility] 2018-12-19 2018-12-19 [facility] [id number] Common 09:48:00 09:48:[address] [facility] 2018-10-27 2018-10-27 [facility] [id number] Common 14:00:00 14:00:[address] [facility] 2018-09-26 2018-09-26 [facility] [id number] Common 16:40:00 16:40:[address] [facility] 2018-06-12 2018-06-12 [facility] [id number] Common 13:00:00 13:00:[address] [facility] 2018-05-09 2018-05-09 [facility] [id number] Common 14:00:00 14:00:[address] [facility] 2018-03-03 2018-03-03 [facility] [id number] Common 10:17:00 10:17:[address] [facility] 2018-02-07 2018-02-07 [facility] [id number] Common 14:30:00 14:30:[address] [facility] 2017-11-08 2017-11-08 [facility] [id number] Common 15:30:00 15:30:[address] [facility] 2017-09-13 2017-09-13 [facility] [id number] Common 13:30:00 13:30:00 [facility] 2017-08-01 2017-08-01 [facility] [id number] Common 14:15:00 14:15:[address] [facility] 2017-05-25 2017-05-25 [facility] [id number] Common 14:30:00 14:30:[address] [facility] Results This patient has no known results.
[2021-09-24] MEDS ORDERED: CLINDAMYCIN 600MG/D5W 0 MG/0 ML BAG IV ONE (16:35)
[2021-09-24] MEDS ORDERED: TETANUS & DIPHTHERIA TOX,ADULT 0.5 ML VIAL ONE (16:35)
[2021-09-24] MEDS ORDERED: AMLODIPINE 5 MG TAB ONE (16:40)
[2021-09-24] MEDS ORDERED: CLINDAMYCIN IV 150 MG/ML (6 mL) VIAL IM SCH (17:00)
[2021-09-24] MEDS ORDERED: HYDROCODONE/APAP 5/325 MG TAB ONE (17:46)
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
--- NOTE | 2021-09-24 18:21 | ER ---
Nurse's Notes [facility] Name: Marilin Conner Age: 70 yrs Sex: Female : 1950 Arrival Date: 09/24/2021 Time: 15:39 Bed 19 Private MD: Diagnosis: Cellulitis of left lower limb;Essential (primary) hypertension Presentation: 09/24 16:08 Chief complaint: Patient states: Left foot pain - denies injury. Pain and swelling to ld1 left foot X 2 days. Coronavirus screen: At this time, the client does not indicate any symptoms associated with coronavirus-19. Ebola Screen: No symptoms or risks identified at this time. Initial Sepsis Screen: Does the patient meet any 2 criteria? No. Patient's initial sepsis screen is negative. Does the patient have a suspected source of infection? No. Patient's initial sepsis screen is negative. Risk Assessment: Do you want to hurt yourself or someone else? Patient reports no desire to harm self or others. Onset of symptoms was September 24, 2021. 16:08 Method Of Arrival: Ambulatory ld1 16:08 Acuity: JUAN C 3 ld1 Triage Assessment: 16:11 General: Appears in no apparent distress. comfortable, Behavior is calm, cooperative, ld1 appropriate for age. Pain: Complains of pain in left foot Pain does not radiate. Pain currently is 9 out of 10 on a pain scale. EENT: No signs and/or symptoms were reported regarding the EENT system. Neuro: Level of Consciousness is awake, alert, obeys commands, Oriented to person, place, time, situation. Cardiovascular: Capillary refill < 3 seconds Patient's skin is warm and dry. Respiratory: Airway is patent Respiratory effort is even, unlabored. GI: Abdomen is round non-distended. : No signs and/or symptoms were reported regarding the genitourinary system. Derm: No signs and/or symptoms reported regarding the dermatologic system. Musculoskeletal: Reports pain in left foot. Historical: - Allergies: 16:11 No Known Allergies; ld1 - PMHx: 16:11 Hypertensive disorder; Kidney disease; ld1 - PSHx: 16:11 section; Total abdominal hysterectomy; ld1 - Immunization history:: Adult Immunizations up to date, Client reports receiving the 2nd dose of the Covid vaccine. - Social history:: Smoking status: Patient denies any tobacco usage or history of. Patient/guardian denies using alcohol. Screenin:18 Abuse screen: Denies threats or abuse. Denies injuries from another. Nutritional jg9 screening: No deficits noted. Tuberculosis screening: No symptoms or risk factors identified. Fall Risk None identified. Vital Signs: 16:08 BP 209 / 71; Pulse 73; Resp 18; Temp 97.7; Pulse Ox 99% on R/A; Weight 54.43 kg; Height ld1 5 ft. 2 in. (157.48 cm); Pain 9/10; 16:15 BP 200 / 78; Pulse 71; Resp 20; Pulse Ox 100% ; Pain 8/10; jg9 16:45 BP 181 / 57; Pulse 67; Resp 19 S; Pulse Ox 100% on R/A; jg9 17:15 BP 135 / 87; Pulse 62; Resp 15 S; Pulse Ox 99% ; jg9 18:00 BP 173 / 58; Pulse 62; Resp 17 S; Pulse Ox 99% on R/A; Pain 4/10; jg9 16:08 Body Mass Index 21.95 (54.43 kg, 157.48 cm) ld1 ED Course: 15:39 Patient arrived in ED. rg4 16:11 Triage completed. ld1 16:11 Arm band placed on right wrist. ld1 16:13 Charley Yarbrough [facility]NP-C [facility]. snw 16:13 Torres Christie MD is Attending Physician. snw 16:15 Lilia Hernandez, SARAH is Primary Nurse. jg9 16:18 Patient has correct armband on for positive identification. Bed in low position. Call jg9 light in reach. Side rails up X 1. 17:45 US Extremity Venous Unilateral Ltd In Process Unspecified. EDMS 18:34 No provider procedures requiring assistance completed. jg9 18:34 Patient did not have IV access during this emergency room visit. jg9 Administered Medications: 16:47 Drug: Tetanus Toxoid,Adsorbed 0.5 ml {Pan Puller: Bycler. Exp: 06/27/2023. Lot jg9 #: [id number]. } Route: IM; Site: right deltoid; 17:37 Follow up: Response: (VIS) Vaccine information sheet provided today. Questions and/or jg9 concerns addressed. VIS edition date: Sep 26, 2020.; No adverse reaction 16:47 Drug: Norvasc (amlodipine) 5 mg Route: PO; jg9 17:36 Follow up: Response: No adverse reaction; Blood pressure is lowered jg9 17:36 Drug: Clindamycin 600 mg Route: IM; Site: right vastus lateralis; jg9 18:09 Follow up: Response: No adverse reaction jg9 17:39 Drug: [place] (HYDROcodone-acetaminophen) 5 mg-325 mg 1 tabs Route: PO; jg9 18:09 Follow up: Response: No adverse reaction; Pain is decreased jg9 Medication: 18:10 Vaccine Information Statement (VIS) provided today. Questions and/or concerns jg9 addressed. VIS edition date: September 24, 2021. Outcome: 18:21 Discharge ordered by MD. daniels 18:34 Discharged to home ambulatory. jg9 18:34 Condition: improved 18:34 Discharge instructions given to patient, Instructed on discharge instructions, follow up and referral plans. Demonstrated understanding of instructions, follow-up care, Prescriptions given X 3. 18:34 Patient left the ED. jg9 Signatures: Dispatcher [employer] EDMS Charley Yarbrough FNP-C PRESCRIPTION CLERK-Holly Smith rg4 Isabela Ham, SARAH RN ld1 Lilia Hernandez RN RN jg9 Corrections: (The following items were deleted from the chart) 16:08 16:08 PMHx: Depression; ld1 ld1 16:08 16:08 PMHx: Hypertension; ld1 ld1 16:12 16:08 Allergies: Demerol [Inactive]; ld1 ld1 18:10 16:15 BP 200 / 78; Pulse 71bpm; Resp 20bpm; Pulse Ox 100%; jg9 jg9
--- NOTE | 2021-09-24 18:21 | EDPHYS ---
Physician Documentation [facility] Name: Marilin Conner Age: 70 yrs Sex: Female : 1950 Arrival Date: 09/24/2021 Time: 15:39 Bed 19 Private MD: ED Physician Torres Christie HPI: 09/24 16:28 This 70 yrs old Female presents to ER via Ambulatory with complaints of Feet snw Swelling. 16:28 The patient presents with pain, that is acute, swelling. Onset: The symptoms/episode snw began/occurred suddenly, and became persistent yesterday. Associated signs and symptoms: Pertinent positives: swelling, warmth. Severity of symptoms: At their worst the symptoms were moderate. The patient has not experienced similar symptoms in the past. The patient has not recently seen a physician. pt with hx of HTN, has not taken meds for one year. Historical: - Allergies: 16:11 No Known Allergies; ld1 - PMHx: 16:11 Hypertensive disorder; Kidney disease; ld1 - PSHx: 16:11 section; Total abdominal hysterectomy; ld1 - Immunization history:: Adult Immunizations up to date, Client reports receiving the 2nd dose of the Covid vaccine. - Social history:: Smoking status: Patient denies any tobacco usage or history of. Patient/guardian denies using alcohol. ROS: 16:32 Constitutional: Negative for fever, chills, and weight loss, Eyes: Negative for injury, snw pain, redness, and discharge, ENT: Negative for injury, pain, and discharge, Neck: Negative for injury, pain, and swelling, Cardiovascular: Negative for chest pain, palpitations, and edema, Respiratory: Negative for shortness of breath, cough, wheezing, and pleuritic chest pain, Abdomen/GI: Negative for abdominal pain, nausea, vomiting, diarrhea, and constipation, Back: Negative for injury and pain, : Negative for injury, bleeding, discharge, and swelling, Neuro: Negative for headache, weakness, numbness, tingling, and seizure, Psych: Negative for depression, anxiety, suicide ideation, homicidal ideation, and hallucinations. 16:32 MS/extremity: Positive for injury or acute deformity, decreased range of motion, erythema, swelling, tenderness, warmth. 16:32 Skin: Positive for healing puncture wounds x 2 to left dorsal foot. Exam: 16:34 Constitutional: This is a well developed, well nourished patient who is awake, alert, snw and in no acute distress. Head/Face: Normocephalic, atraumatic. Eyes: Pupils equal round and reactive to light, extra-ocular motions intact. Lids and lashes normal. Conjunctiva and sclera are non-icteric and not injected. Cornea within normal limits. Periorbital areas with no swelling, redness, or edema. ENT: Nares patent. No nasal discharge, no septal abnormalities noted. Tympanic membranes are normal and external auditory canals are clear. Oropharynx with no redness, swelling, or masses, exudates, or evidence of obstruction, uvula midline. Mucous membranes moist. Neck: Trachea midline, no thyromegaly or masses palpated, and no cervical lymphadenopathy. Supple, full range of motion without nuchal rigidity, or vertebral point tenderness. No Meningismus. Chest/axilla: Normal chest wall appearance and motion. Nontender with no deformity. No lesions are appreciated. Cardiovascular: Regular rate and rhythm with a normal S1 and S2. No gallops, murmurs, or rubs. Normal PMI, no JVD. No pulse deficits. Respiratory: Lungs have equal breath sounds bilaterally, clear to auscultation and percussion. No rales, rhonchi or wheezes noted. No increased work of breathing, no retractions or nasal flaring. Abdomen/GI: Soft, non-tender, with normal bowel sounds. No distension or tympany. No guarding or rebound. No evidence of tenderness throughout. Back: No spinal tenderness. No costovertebral tenderness. Full range of motion. Neuro: Awake and alert, GCS 15, oriented to person, place, time, and situation. Cranial nerves II-XII grossly intact. Motor strength 5/5 in all extremities. Sensory grossly intact. Cerebellar exam normal. Normal gait. 16:34 Musculoskeletal/extremity: Circulation is intact in all extremities. Perfusion: the patient is warm, noted to have brisk capillary refill, DVT Exam: swelling, tenderness, erythema, that is mild, of the left leg. 16:34 Skin: cellulitis, that is moderate, well demarcated, on the left foot. 16:34 Neuro: Exam negative for acute changes. Vital Signs: 16:08 BP 209 / 71; Pulse 73; Resp 18; Temp 97.7; Pulse Ox 99% on R/A; Weight 54.43 kg; Height ld1 5 ft. 2 in. (157.48 cm); Pain 9/10; 16:15 BP 200 / 78; Pulse 71; Resp 20; Pulse Ox 100% ; Pain 8/10; jg9 16:45 BP 181 / 57; Pulse 67; Resp 19 S; Pulse Ox 100% on R/A; jg9 17:15 BP 135 / 87; Pulse 62; Resp 15 S; Pulse Ox 99% ; jg9 18:00 BP 173 / 58; Pulse 62; Resp 17 S; Pulse Ox 99% on R/A; Pain 4/10; jg9 16:08 Body Mass Index 21.95 (54.43 kg, 157.48 cm) ld1 MDM: 16:35 Data reviewed: vital signs, nurses notes. Counseling: I had a detailed discussion with snw the patient and/or guardian regarding: the historical points, exam findings, and any diagnostic results supporting the discharge/admit diagnosis, the presence of at least one elevated blood pressure reading (>120/80) during this emergency department visit, to return to the emergency department if symptoms worsen or persist or if there are any questions or concerns that arise at home. 17:22 Patient medically screened. snw 09/24 16:24 Order name: US Extremity Venous Unilateral Ltd; Complete Time: 17:57 snw 09/24 17:30 Order name: BP Recheck; Complete Time: 17:36 snw Administered Medications: 16:47 Drug: Tetanus Toxoid,Adsorbed 0.5 ml {Stamp Clerk: [employer]. Exp: 06/27/2023. Lot jg9 #: [id number]. } Route: IM; Site: right deltoid; 17:37 Follow up: Response: (VIS) Vaccine information sheet provided today. Questions and/or jg9 concerns addressed. VIS edition date: Sep 26, 2020.; No adverse reaction 16:47 Drug: Norvasc (amlodipine) 5 mg Route: PO; jg9 17:36 Follow up: Response: No adverse reaction; Blood pressure is lowered jg9 17:36 Drug: Clindamycin 600 mg Route: IM; Site: right vastus lateralis; jg9 18:09 Follow up: Response: No adverse reaction jg9 17:39 Drug: [place] (HYDROcodone-acetaminophen) 5 mg-325 mg 1 tabs Route: PO; jg9 18:09 Follow up: Response: No adverse reaction; Pain is decreased jg9 Disposition: 09/25 09:07 Co-signature as Attending Physician, Torres Christie MD I agree with the assessment and kdr plan of care. Disposition Summary: 09/24/21 18:21 Discharge Ordered Location: Home snw Condition: Stable snw Diagnosis - Cellulitis of left lower limb snw - Essential (primary) hypertension snw Followup: snw - With: Emergency Department - When: As needed - Reason: Worsening of condition Followup: snw - With: Private Physician - When: 5 - 6 days - Reason: Recheck today's complaints, Continuance of care, Re-evaluation by your physician Discharge Instructions: - Discharge Summary Sheet snw - Cellulitis, Adult snw - Hypertension, Adult snw - How to Take Your Blood Pressure, Dxax-dn-Fydg snw - DASH Eating Plan snw - Rehydration, Adult snw Forms: - Medication Reconciliation Form snw - Thank You Letter snw - Antibiotic Education snw - Prescription Opioid Use snw Prescriptions: - Clindamycin HCl 300 mg Oral Capsule - take 1 capsule by ORAL route every 8 hours for 10 days; 30 capsule; Refills: 0, snw Product Selection Permitted - Diclofenac Sodium 75 mg Oral Tablet Sustained Release - take 1 tablet by ORAL route 2 times per day; 30 tablet; Refills: 0, Product snw Selection Permitted - Norvasc 5 mg Oral Tablet - take 1 tablet by ORAL route once daily; 20 tablet; Refills: 0, Product snw Selection Permitted Signatures: Dispatcher [employer] [facility] Torres Christie MD MD kdr Waters, Shelly, JEET-C [employer] Isabela Ham, SARAH RN ld1 Lilia Hernandez RN RN jg9 Corrections: (The following items were deleted from the chart) 09/24 16:08 16:08 PMHx: Depression; ld1 ld1 16:08 16:08 PMHx: Hypertension; ld1 ld1 16:12 16:08 Allergies: Demerol [Inactive]; ld1 ld1
[2021-09-24 19:40] VITALS: TEMP 97.7
[2021-09-24 19:47] VITALS: O2SAT 99
[2021-09-24 19:49] VITALS: BP 173/58
== END 2021-09-24 18:34 | disposition home or self-care (01) ==
LOC: ER 15:36
DX: L03.116 Cellulitis of left lower limb (principal); I10 Essential (primary) hypertension; Z23 Encounter for immunization
CPT/HCPCS: 90471; 90714; 93971; 96372; 99283

== ENCOUNTER 2022-09-29 15:06 | Emergency (ER) | payer OTHER ==
--- OUTSIDE RECORDS SUMMARY | 2022-09-29 15:32 | XMS REPORT | Continuity of Care Document ---
:1950 Author Organization [facility] t Address [address] [place] [address] [place] [id number] Care Team Providers Name Role Phone Nick aGmez Attending Clinician Unavailable Naveed Hoang Attending Clinician Unavailable Nissa Lara Attending Clinician Unavailable Rina VELASCO Attending Clinician Unavailable Yeimi Yepez MD Attending Clinician YEIMI YEPEZ Attending Clinician Unavailable Payers Payer Name Policy Type Policy Effective Date Expiration Date Sour ce Number [facility] 2022 (MEDICARE 00:00:00 REPLACEMENT HMO) [employer] MEDICARE C1 [id number] 2020 [facility] 00:00:[address] [facility] HU[employer]NA MEDICARE C1 [id number] 2020 [facility] 00:[facility]:[address] [facility] HU[employer]NA MEDICARE C1 [id number] 2020 [facility] 00:00:[facility] MEDICARE RACHEAL MCALLISTER [id number] [facility] HU[employer]NA MEDICARE C1 [id number] 2020 [facility] 00:00:00 [facility] HU[employer]NA MEDICARE C1 [id number] 2020 [facility] 00:00:00 - [facility] Problems Condition Condition Condition Status Onset Resolution Last Treating Co mments Source Name Details Category Date Date Treatment Clinician Date [id number] Varicose Problem Commo n veins of Spirit both legs - [facility] with edema [facility] Essential Benign Problem Common hypertensi essential Spi rit on HTN - [facility] Gastroesop GERD Problem Commo n hageal (gastroeso Spirit reflux phageal - CHI disease reflux St disease) [facility] Nicotine Nicotine Problem Commo n dependence dependence Sp lee [facility] Displaceme Herniated Problem Co mmon nt of interverte Spirit lumbar bral disc - [facility] interverte of lumbar St bral disc spine [facility] [id number] Degenerati Problem Com mon on disease Spirit of medial - CHI meniscus [facility] Osteoarthr Osteoarthr Problem C ommon itis of itis of Spirit multiple multiple - [facility]I joints joints [facility] Seasonal Allergic Problem Commo n allergic rhinitis, Spiri t rhinitis seasonal [facility] [id number] Prepatella Problem Co mmon r effusion Spirit of right - [facility]I knee 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 Vitamin D Vitamin D Problem Com mon deficiency deficiency Sp lee [facility] [id number] Other Problem Common chronic Spirit pain [facility] Mixed Depression Problem Commo n anxiety with Spirit and anxiety - CHI depressive [facility] Insomnia Insomnia Problem Commo n Spirit - 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 [id number] Protrusion Problem Com mon of Spirit interverte - [facility]I bral disc [facility] lumbosacra Medica l [facility] [id number] Lumbosacra Problem Co mmon l [facility] rad[facility]opa - [facility] [place] [facility] Allergies, Adverse Reactions, Alerts Allergy Allergy Status Severity Reaction(s) Onset Inactive Treating Comm ents Source Name Type Date Date Clinician NO KNOWN Drug Active Univers ALLERGIE Class ity of S [facility] 8102 Drug Active Unknown Common allergy [facility] meperidi meperidi Active Unknown Commo n ne ne [facility] Social History Social Habit Start Date Stop Date Quantity Comments Source [facility] to [facility]CoV-2 [facility] History of Tobacco Use Co mmon [facility] Sex Assigned At Com mon [facility] Smoking Status Start Date Stop Date Source Unknown if ever smoked [facility] Never Smoker Common [facility] Medications Ordered Filled Start Stop Current Ordering Indication Dosage Frequency Signature Comments Components Source Medication Medication Date Date Medication? Clinician (SIG) Name Name Losartan Losartan No 1{table QD Losartan Potassium-H Potassium-H 5-21 t} Potassium- CTZ 100-25 CTZ 100-25 00:00: HCTZ MG MG 00 100-25 MG Losartan Losartan No 1{table QD Losartan Potassium-H Potassium-H 5-21 t} Potassium- CTZ 100-25 CTZ 100-25 00:00: HCTZ MG MG 00 100-25 MG Losartan Losartan No 1{table QD Losartan Potassium-H Potassium-H 5-21 t} Potassium- CTZ 100-25 CTZ 100-25 00:00: HCTZ MG MG 00 100-25 MG Losartan Losartan No 1{table QD Losartan Potassium-H Potassium-H 5-21 t} Potassium- CTZ 100-25 CTZ 100-25 00:00: HCTZ MG MG 00 100-25 MG Losartan Losartan No 1{table QD Losartan Potassium-H Potassium-H 5-21 t} Potassium- CTZ 100-25 CTZ 100-25 00:00: HCTZ MG MG 00 100-25 MG Losartan Losartan No 1{table QD Losartan Potassium-H Potassium-H 5-21 t} Potassium- CTZ 100-25 CTZ 100-25 00:00: HCTZ MG MG 00 100-25 MG Losartan Losartan No 1{table QD Losartan Potassium-H Potassium-H 5-21 t} Potassium- CTZ 100-25 CTZ 100-25 00:00: HCTZ MG MG 00 100-25 MG Losartan Losartan No 1{table QD Losartan Potassium-H Potassium-H 5-21 t} Potassium- CTZ 100-25 CTZ 100-25 00:00: HCTZ MG MG 00 100-25 MG Kenalog Kenalog 2019- No 40mg Common (Triamcinol (Triamcinol 0-27 S pirit one) one) 00:00: - [facility] Kenalog Kenalog 2020-1 No 40mg Common (Triamcinol (Triamcinol 0-27 S pirit one) one) 00:00: - [facility] 00 [facility] Kenalog Kenalog 2020-1 No 40mg Common (Triamcinol (Triamcinol 0-27 S pirit one) one) 00:00: - [facility]I 00 [facility] Diclofenac Diclofenac 2019-0 2020- No Na Velasco 2 gram Common Sodium Sodium 08-29 applicatio Spir it 00:00: 00:00 n to - CHI 00 :00 affected [facility] Cyclobenzap Cyclobenzap 2019-0 2020- No Na Velasco 1 tablet Common rine HCl rine HCl 08-29 at bedtime Spirit 00:00: 00:00 - CHI 00 :00 [facility] Telmisartan Telmisartan Yes Na Velasco 1 tablet [facility] Spirit [facility] Cetirizine Cetirizine Yes Na Velasco 1 tablet Common HCl HCl [facility] Clonidine Clonidine Yes Na Velasco TAKE 1 Common HCl HCl TABLET BY Spirit MOUTH 3 - CHI TIMES [facility] Mirtazapine Mirtazapine Yes Na Velasco TAKE 2 Common TABLETS BY Spirit MOUTH ONCE - CHI A DAY AT [facility] Bystolic Bystolic Yes Na Velasco TAKE 1 Co mmon TABLET BY Spirit MOUTH ONCE - CHI A DAY [facility] Xanax Xanax Yes Na Velasco 1 tablet [facility] Telmisartan Telmisartan Yes Na Velasco 1 tablet Common [facility] Celexa Celexa Yes Na Velasco TAKE 1 Common TABLET BY Spirit MOUTH ONCE - CHI A DAY [facility] Bystolic Bystolic Yes Na Velasco 1 tablet Common [facility] Pantoprazol Pantoprazol Yes Na Velasco TAKE 1 Common e Sodium e Sodium TABLET BY Sp lee MOUTH ONCE - CHI A DAY [facility] Rosuvastati Rosuvastati Yes Na Velasco TAKE 1 Common n Calcium n Calcium TABLET BY Spirit MOUTH ONCE - CHI A DAY [facility] Flonase Flonase Yes Na Velasco 2 spray in Common each [facility] nostril [facility] Imitrex Imitrex Yes Na Velasco 1 tablet Co mmon as needed [facility] Omeprazole Omeprazole Yes Na Velasco 1 capsule Common 30 minutes Spirit before - CHI morning [facility] Xanax 0.5 Xanax 0.5 No 1{table Xanax 0.5 MG MG t} MG Flonase 50 Flonase 50 No 2{spray QD Flonase 50 MCG/ACT MCG/ACT _in_eac MCG/ACT h_nostr il} Celexa 40 Celexa 40 No 1{table QD Celexa 40 MG MG t} MG Clonidine Clonidine No 1{table TID Clonidine HCl 0.3 MG HCl 0.3 MG t} HCl 0.3 MG Diclofenac Diclofenac No TID Diclofenac Sodium 1 % Sodium 1 % Sodium 1 % Cetirizine Cetirizine No 1{table QD Cetirizine HCl 10 MG HCl 10 MG t} HCl 10 MG Cyclobenzap Cyclobenzap No Cyclobenza rine HCl 10 rine HCl 10 samia HCl MG MG 10 MG Cyclobenzap Cyclobenzap No 1{table QD Cyclobenza rine HCl 10 rine HCl 10 t_at_be samia HCl MG MG dtime} 10 MG Imitrex 50 Imitrex 50 No 1{table BID Imitrex 50 MG MG t_as_ne MG eded} Mirtazapine Mirtazapine No Mirtazapin 15 MG 15 MG e 15 MG Bystolic 20 Bystolic 20 No 1{table QD Bystolic MG MG t} 20 MG Bystolic 20 Bystolic 20 No Bystolic MG MG 20 MG Telmisartan Telmisartan No Telmisarta 80 MG 80 MG n 80 MG Rosuvastati Rosuvastati No Rosuvastat n Calcium n Calcium in Calcium 10 MG 10 MG 10 MG Pantoprazol Pantoprazol No Pantoprazo e Sodium 40 e Sodium 40 le Sodium MG MG 40 MG Celexa 40 Celexa 40 No Celexa 40 MG MG MG Clonidine Clonidine No Clonidine HCl 0.1 MG HCl 0.1 MG HCl 0.1 MG Omeprazole Omeprazole No QD Omeprazole 40 MG 40 MG 40 MG Bystolic 20 Bystolic 20 No Bystolic MG MG 20 MG Rosuvastati Rosuvastati No Rosuvastat n Calcium n Calcium in Calcium 10 MG 10 MG 10 MG Pantoprazol Pantoprazol No Pantoprazo e Sodium 40 e Sodium 40 le Sodium MG MG 40 MG CeleXA 40 CeleXA 40 No 1{table QD CeleXA 40 MG MG t} MG Bystolic 20 Bystolic 20 No 1{table QD Bystolic MG MG t} 20 MG Cetirizine Cetirizine No 1{table QD Cetirizine HCl 10 MG HCl 10 MG t} HCl 10 MG cloNIDine cloNIDine No 1{table TID cloNIDine HCl 0.3 MG HCl 0.3 MG t} HCl 0.3 MG Flonase 50 Flonase 50 No 2{spray QD Flonase 50 MCG/ACT MCG/ACT _in_eac MCG/ACT h_nostr il} Cyclobenzap Cyclobenzap No Cyclobenza rine HCl 10 rine HCl 10 samia HCl MG MG 10 MG Omeprazole Omeprazole No QD Omeprazole 40 MG 40 MG 40 MG Xanax 0.5 Xanax 0.5 No 1{table Xanax 0.5 MG MG t} MG Diclofenac Diclofenac No TID Diclofenac Sodium 1 % Sodium 1 % Sodium 1 % Cyclobenzap Cyclobenzap No 1{table QD Cyclobenza rine HCl 10 rine HCl 10 t_at_be samia HCl MG MG dtime} 10 MG Mirtazapine Mirtazapine No Mirtazapin 15 MG 15 MG e 15 MG cloNIDine cloNIDine No cloNIDine HCl 0.1 MG HCl 0.1 MG HCl 0.1 MG Imitrex 50 Imitrex 50 No 1{table BID Imitrex 50 MG MG t_as_ne MG eded} Telmisartan Telmisartan No Telmisarta 80 MG 80 MG n 80 MG CeleXA 40 CeleXA 40 No CeleXA 40 MG MG MG CeleXA 40 CeleXA 40 No CeleXA 40 MG MG MG Diclofenac Diclofenac No TID Diclofenac Sodium 1 % Sodium 1 % Sodium 1 % cloNIDine cloNIDine No 2{table TID cloNIDine HCl 0.1 MG HCl 0.1 MG t_at_be HCl 0.1 MG dtime} Cyclobenzap Cyclobenzap No 1{table QD Cyclobenza rine HCl 10 rine HCl 10 t_at_be samia HCl MG MG dtime} 10 MG Bystolic 20 Bystolic 20 No 1{table QD Bystolic MG MG t} 20 MG Imitrex 50 Imitrex 50 No 1{table BID Imitrex 50 MG MG t_as_ne MG eded} Telmisartan Telmisartan No 1{table QD Telmisarta 80 MG 80 MG t} n 80 MG Cyclobenzap Cyclobenzap No Cyclobenza rine HCl 10 rine HCl 10 samia HCl MG MG 10 MG Telmisartan Telmisartan No Telmisarta 80 MG 80 MG n 80 MG CeleXA 40 CeleXA 40 No 1{table QD CeleXA 40 MG MG t} MG Omeprazole Omeprazole No QD Omeprazole 40 MG 40 MG 40 MG Flonase 50 Flonase 50 No 2{spray QD Flonase 50 MCG/ACT MCG/ACT _in_eac MCG/ACT h_nostr il} Pantoprazol Pantoprazol No Pantoprazo e Sodium 40 e Sodium 40 le Sodium MG MG 40 MG Rosuvastati Rosuvastati No Rosuvastat n Calcium n Calcium in Calcium 10 MG 10 MG 10 MG Xanax 0.5 Xanax 0.5 No 1{table Xanax 0.5 MG MG t} MG Mirtazapine Mirtazapine No Mirtazapin 15 MG 15 MG e 15 MG cloNIDine cloNIDine No cloNIDine HCl 0.1 MG HCl 0.1 MG HCl 0.1 MG Cetirizine Cetirizine No 1{table QD Cetirizine HCl 10 MG HCl 10 MG t} HCl 10 MG Bystolic 20 Bystolic 20 No Bystolic MG MG 20 MG Cetirizine Cetirizine No 1{table QD Cetirizine HCl 10 MG HCl 10 MG t} HCl 10 MG Telmisartan Telmisartan No Telmisarta 80 MG 80 MG n 80 MG Flonase 50 Flonase 50 No 2{spray QD Flonase 50 MCG/ACT MCG/ACT _in_eac MCG/ACT h_nostr il} CeleXA 40 CeleXA 40 No 1{table QD CeleXA 40 MG MG t} MG Pantoprazol Pantoprazol No Pantoprazo e Sodium 40 e Sodium 40 le Sodium MG MG 40 MG Omeprazole Omeprazole No QD Omeprazole 40 MG 40 MG 40 MG Xanax 0.5 Xanax 0.5 No 1{table Xanax 0.5 MG MG t} MG Bystolic 20 Bystolic 20 No 1{table QD Bystolic MG MG t} 20 MG Cyclobenzap Cyclobenzap No 1{table QD Cyclobenza rine HCl 10 rine HCl 10 t_at_be samia HCl MG MG dtime} 10 MG cloNIDine cloNIDine No cloNIDine HCl 0.1 MG HCl 0.1 MG HCl 0.1 MG Mirtazapine Mirtazapine No Mirtazapin 15 MG 15 MG e 15 MG Diclofenac Diclofenac No TID Diclofenac Sodium 1 % Sodium 1 % Sodium 1 % Bystolic 20 Bystolic 20 No Bystolic MG MG 20 MG Rosuvastati Rosuvastati No Rosuvastat n Calcium n Calcium in Calcium 10 MG 10 MG 10 MG Cyclobenzap Cyclobenzap No Cyclobenza rine HCl 10 rine HCl 10 samia HCl MG MG 10 MG Imitrex 50 Imitrex 50 No 1{table BID Imitrex 50 MG MG t_as_ne MG eded} cloNIDine cloNIDine No 1{table TID cloNIDine HCl 0.1 MG HCl 0.1 MG t} HCl 0.1 MG Telmisartan Telmisartan No 1{table QD Telmisarta 80 MG 80 MG t} n 80 MG CeleXA 40 CeleXA 40 No CeleXA 40 MG MG MG Pantoprazol Pantoprazol No Pantoprazo e Sodium 40 e Sodium 40 le Sodium MG MG 40 MG Cetirizine Cetirizine No 1{table QD Cetirizine HCl 10 MG HCl 10 MG t} HCl 10 MG Omeprazole Omeprazole No QD Omeprazole 40 MG 40 MG 40 MG cloNIDine cloNIDine No cloNIDine HCl 0.3 MG HCl 0.3 MG HCl 0.3 MG Flonase 50 Flonase 50 No 2{spray QD Flonase 50 MCG/ACT MCG/ACT _in_eac MCG/ACT h_nostr il} Telmisartan Telmisartan No 1{table QD Telmisarta 80 MG 80 MG t} n 80 MG Imitrex 50 Imitrex 50 No 1{table BID Imitrex 50 MG MG t_as_ne MG eded} Diclofenac Diclofenac No TID Diclofenac Sodium 1 % Sodium 1 % Sodium 1 % Xanax 0.5 Xanax 0.5 No 1{table Xanax 0.5 MG MG t} MG cloNIDine cloNIDine No cloNIDine HCl 0.1 MG HCl 0.1 MG HCl 0.1 MG Citalopram Citalopram No Citalopram Hydrobromid Hydrobromid Hydrobromi e 40 MG e 40 MG de 40 MG Rosuvastati Rosuvastati No Rosuvastat n Calcium n Calcium in Calcium 10 MG 10 MG 10 MG CeleXA 40 CeleXA 40 No CeleXA 40 MG MG MG Bystolic 20 Bystolic 20 No 1{table QD Bystolic MG MG t} 20 MG Cyclobenzap Cyclobenzap No Cyclobenza rine HCl 10 rine HCl 10 samia HCl MG MG 10 MG Cyclobenzap Cyclobenzap No 1{table QD Cyclobenza rine HCl 10 rine HCl 10 t_at_be samia HCl MG MG dtime} 10 MG Mirtazapine Mirtazapine No Mirtazapin 15 MG 15 MG e 15 MG Telmisartan Telmisartan No Telmisarta 80 MG 80 MG n 80 MG Cyclobenzap Cyclobenzap No 1{table QD Cyclobenza rine HCl 10 rine HCl 10 t_at_be samai HCl MG MG dtime} 10 MG Bystolic 20 Bystolic 20 No 1{table QD Bystolic MG MG t} 20 MG amLODIPine amLODIPine No 1{table QD amLODIPine Besylate 5 Besylate 5 t} Besylate 5 MG MG MG Flonase 50 Flonase 50 No 2{spray QD Flonase 50 MCG/ACT MCG/ACT _in_eac MCG/ACT h_nostr il} Xanax 0.5 Xanax 0.5 No 1{table Xanax 0.5 MG MG t} MG cloNIDine cloNIDine No cloNIDine HCl 0.3 MG HCl 0.3 MG HCl 0.3 MG Mirtazapine Mirtazapine No Mirtazapin 15 MG 15 MG e 15 MG Cyclobenzap Cyclobenzap No Cyclobenza rine HCl 10 rine HCl 10 samia HCl MG MG 10 MG cloNIDine cloNIDine No cloNIDine HCl 0.1 MG HCl 0.1 MG HCl 0.1 MG Omeprazole Omeprazole No QD Omeprazole 40 MG 40 MG 40 MG Telmisartan Telmisartan No 1{table QD Telmisarta 80 MG 80 MG t} n 80 MG Telmisartan Telmisartan No Telmisarta 80 MG 80 MG n 80 MG Imitrex 50 Imitrex 50 No 1{table BID Imitrex 50 MG MG t_as_ne MG eded} Pantoprazol Pantoprazol No Pantoprazo e Sodium 40 e Sodium 40 le Sodium MG MG 40 MG Diclofenac Diclofenac No TID Diclofenac Sodium 1 % Sodium 1 % Sodium 1 % CeleXA 40 CeleXA 40 No CeleXA 40 MG MG MG Rosuvastati Rosuvastati No Rosuvastat n Calcium n Calcium in Calcium 10 MG 10 MG 10 MG Cetirizine Cetirizine No 1{table QD Cetirizine HCl 10 MG HCl 10 MG t} HCl 10 MG Citalopram Citalopram No Citalopram Hydrobromid Hydrobromid Hydrobromi e 40 MG e 40 MG de 40 MG Cyclobenzap Cyclobenzap No 1{table QD Cyclobenza rine HCl 10 rine HCl 10 t_at_be samia HCl MG MG dtime} 10 MG Bystolic 20 Bystolic 20 No 1{table QD Bystolic MG MG t} 20 MG amLODIPine amLODIPine No 1{table QD amLODIPine Besylate 5 Besylate 5 t} Besylate 5 MG MG MG Flonase 50 Flonase 50 No 2{spray QD Flonase 50 MCG/ACT MCG/ACT _in_eac MCG/ACT h_nostr il} Xanax 0.5 Xanax 0.5 No 1{table Xanax 0.5 MG MG t} MG cloNIDine cloNIDine No cloNIDine HCl 0.3 MG HCl 0.3 MG HCl 0.3 MG Mirtazapine Mirtazapine No Mirtazapin 15 MG 15 MG e 15 MG Cyclobenzap Cyclobenzap No Cyclobenza rine HCl 10 rine HCl 10 samia HCl MG MG 10 MG cloNIDine cloNIDine No cloNIDine HCl 0.1 MG HCl 0.1 MG HCl 0.1 MG Omeprazole Omeprazole No QD Omeprazole 40 MG 40 MG 40 MG Telmisartan Telmisartan No 1{table QD Telmisarta 80 MG 80 MG t} n 80 MG Telmisartan Telmisartan No Telmisarta 80 MG 80 MG n 80 MG Imitrex 50 Imitrex 50 No 1{table BID Imitrex 50 MG MG t_as_ne MG eded} Pantoprazol Pantoprazol No Pantoprazo e Sodium 40 e Sodium 40 le Sodium MG MG 40 MG Diclofenac Diclofenac No TID Diclofenac Sodium 1 % Sodium 1 % Sodium 1 % CeleXA 40 CeleXA 40 No CeleXA 40 MG MG MG Rosuvastati Rosuvastati No Rosuvastat n Calcium n Calcium in Calcium 10 MG 10 MG 10 MG Cetirizine Cetirizine No 1{table QD Cetirizine HCl 10 MG HCl 10 MG t} HCl 10 MG Citalopram Citalopram No Citalopram Hydrobromid Hydrobromid Hydrobromi e 40 MG e 40 MG de 40 MG Xanax 0.5 Xanax 0.5 No 1{table Xanax 0.5 MG MG t} MG Flonase 50 Flonase 50 No 2{spray QD Flonase 50 MCG/ACT MCG/ACT _in_eac MCG/ACT h_nostr il} Celexa 40 Celexa 40 No 1{table QD Celexa 40 MG MG t} MG Clonidine Clonidine No 1{table TID Clonidine HCl 0.3 MG HCl 0.3 MG t} HCl 0.3 MG Diclofenac Diclofenac No TID Diclofenac Sodium 1 % Sodium 1 % Sodium 1 % Cetirizine Cetirizine No 1{table QD Cetirizine HCl 10 MG HCl 10 MG t} HCl 10 MG Cyclobenzap Cyclobenzap No Cyclobenza rine HCl 10 rine HCl 10 samia HCl MG MG 10 MG Cyclobenzap Cyclobenzap No 1{table QD Cyclobenza rine HCl 10 rine HCl 10 t_at_be samia HCl MG MG dtime} 10 MG Imitrex 50 Imitrex 50 No 1{table BID Imitrex 50 MG MG t_as_ne MG eded} Mirtazapine Mirtazapine No Mirtazapin 15 MG 15 MG e 15 MG Bystolic 20 Bystolic 20 No 1{table QD Bystolic MG MG t} 20 MG Bystolic 20 Bystolic 20 No Bystolic MG MG 20 MG Telmisartan Telmisartan No Telmisarta 80 MG 80 MG n 80 MG Rosuvastati Rosuvastati No Rosuvastat n Calcium n Calcium in Calcium 10 MG 10 MG 10 MG Pantoprazol Pantoprazol No Pantoprazo e Sodium 40 e Sodium 40 le Sodium MG MG 40 MG Celexa 40 Celexa 40 No Celexa 40 MG MG MG Clonidine Clonidine No Clonidine HCl 0.1 MG HCl 0.1 MG HCl 0.1 MG Omeprazole Omeprazole No QD Omeprazole 40 MG 40 MG 40 MG Immunizations Ordered Immunization Filled Immunization Date Status Commen ts Source Name Name FLUZONE HIGH DOSE FLUZONE HIGH DOSE 2022-01-22 Completed [facility] OVER 65 OVER 65 15:52:00 [facility] FLUZONE HIGH DOSE FLUZONE HIGH DOSE 2022-01-22 Completed [facility] OVER 65 OVER 65 15:52:00 [facility] Prevnar 20 (PCV20) Prevnar 20 (PCV20) 2022-01-22 Completed [facility] 15:51:00 [facility] Prevnar 20 (PCV20) Prevnar 20 (PCV20) 2022-01-22 Completed [facility] 15:51:00 - [facility] Moderna COVID-19 Moderna COVID-19 2020-08-08 Completed Co [facility] Vaccine Vaccine 15:57:00 [facility] Moderna COVID-19 Moderna COVID-19 2020-08-08 Completed Co m[facility] Vaccine Vaccine 15:57:00 [facility] Moderna COVID-19 Moderna COVID-19 2020-08-08 Completed Co mmon [facility] Vaccine Vaccine 15:57:00 - [facility] Moderna COVID-19 Moderna COVID-19 2020-08-08 Completed Co m[facility] Vaccine Vaccine 15:57:00 - [facility] Moderna COVID-19 Moderna COVID-19 2020-08-08 Completed Co mmon [facility] Vaccine Vaccine 15:57:00 - [facility] Moderna COVID-19 Moderna COVID-19 2020-08-08 Completed Co m[facility] Vaccine Vaccine 15:57:00 - [facility] Moderna COVID-19 Moderna COVID-19 2020-07-11 Completed Co m[facility] Vaccine Vaccine 15:23:00 - [facility] Moderna COVID-19 Moderna COVID-19 2020-07-11 Completed Co m[facility] Vaccine Vaccine 15:23:00 - [facility] Moderna COVID-19 Moderna COVID-19 2020-07-11 Completed Co m[facility] Vaccine Vaccine 15:23:00 - [facility] Moderna COVID-19 Moderna COVID-19 2020-07-11 Completed Co m[facility] Vaccine Vaccine 15:23:00 - [facility] Moderna COVID-19 Moderna COVID-19 2020-07-11 Completed Co m[facility] Vaccine Vaccine 15:23:00 - [facility] Moderna COVID-19 Moderna COVID-19 2020-07-11 Completed Co [facility] Vaccine Vaccine 15:23:00 - [facility] Moderna COVID-19 Moderna COVID-19 2020-07-11 Completed Co m[facility] Vaccine Vaccine 15:23:00 - [facility] Moderna COVID-19 Moderna COVID-19 2020-07-11 Completed Co mmon [facility] Vaccine Vaccine 15:23:00 - [facility] Kenalog Kenalog 2019-12-18 Completed [facility] (Triamcinolone) (Triamcinolone) 14:27:00 [facility] Kenalog Kenalog 2019-12-18 Completed [facility] (Triamcinolone) (Triamcinolone) 14:27:00 - [facility] Kenalog Kenalog 2019-12-18 Completed [facility] (Triamcinolone) (Triamcinolone) 14:27:00 - [facility] Kenalog Kenalog 2019-12-18 Completed [facility] (Triamcinolone) (Triamcinolone) 14:27:00 - [facility] Kenalog Kenalog 2019-12-18 Completed [facility] (Triamcinolone) (Triamcinolone) 14:27:00 - [facility] FluAD FluAD 2019-01-26 Completed [facility] 14:39:00 - [facility] FluAD FluAD 2019-01-26 Completed [facility] 14:39:00 - [facility] FluAD FluAD 2019-01-26 Completed [facility] 14:39:00 - [facility] FluAD FluAD 2019-01-26 Completed [facility] 14:39:00 - [facility] FluAD FluAD 2019-01-26 Completed [facility] 14:39:00 - [facility] FluAD FluAD 2019-01-26 Completed [facility] 14:39:00 - [facility] FluAD FluAD 2019-01-26 Completed [facility] 14:39:00 - [facility] FluAD FluAD 2019-01-26 Completed [facility] 14:39:00 - [facility] FluAD FluAD 2019-01-26 Completed [facility] 00:00:00 [facility] Vital Signs Vital Name Observation Time Observation Value Comments Source height 2022-01-22 14:00:00 64.00 [in_i] [facility] weight 2022-01-22 14:00:00 126.2 [lb_av] [facility] temperature 2022-01-22 14:00:00 98.2 [degF] [facility] bmi 2022-01-22 14:00:00 21.66 kg/m2 [facility] oximetry 2022-01-22 14:00:00 100 % [facility] respiratory rate 2022-01-22 14:00:00 16 /min Comm on [facility] blood pressure 2022-01-22 14:00:00 134 mm[Hg] [facility] - systolic [facility] blood pressure 2022-01-22 14:00:00 76 mm[Hg] [facility] - diastolic [facility] height 2022-01-22 14:00:00 64.00 [in_i] [facility] - [facility] weight 2022-01-22 14:00:00 126.2 [lb_av] Common [facility] - [facility] temperature 2022-01-22 14:00:00 98.2 [degF] [facility] S [facility] - [facility] bmi 2022-01-22 14:00:00 21.66 kg/m2 Common S pirit [facility] oximetry 2022-01-22 14:00:00 100 % Common S pirit [facility] blood pressure 2022-01-22 14:00:00 134 mm[Hg] Common [facility] - systolic [facility] [facility] blood pressure 2022-01-22 14:00:00 76 mm[Hg] [facility] - [facility] height 2020-10-09 14:00:00 64.00 [in_i] [facility] weight 2020-10-09 14:00:00 143.0 [lb_av] Common [facility] temperature 2020-10-09 14:00:00 97.1 [degF] [facility] bmi 2020-10-09 14:00:00 24.54 kg/m2 [facility] oximetry 2020-10-09 14:00:00 99 % [facility] respiratory rate 2020-10-09 14:00:00 18 /min Comm [facility] - [facility] blood pressure 2020-10-09 14:00:00 142 mm[Hg] [facility] blood pressure 2020-10-09 14:00:00 82 mm[Hg] [facility] height 2020-08-21 08:00:00 64.00 [in_i] [facility] weight 2020-08-21 08:00:00 145.0 [lb_av] [facility] temperature 2020-08-21 08:00:00 97.2 [degF] [facility] bmi 2020-08-21 08:00:00 24.89 kg/m2 [facility] oximetry 2020-08-21 08:00:00 98 % [facility] respiratory rate 2020-08-21 08:00:00 18 /min Comm on [facility] blood pressure 2020-08-21 08:00:00 164 mm[Hg] [facility] blood pressure 2020-08-21 08:00:00 72 mm[Hg] [facility] [place] [facility] respiratory rate 2020-07-11 13:20:00 18 /min Comm on [facility] blood pressure 2020-07-11 13:20:00 194 mm[Hg] [facility] [place] [facility] blood pressure 2020-07-11 13:20:00 77 mm[Hg] [facility] [place] [facility] height 2020-07-11 13:20:00 64.00 [in_i] [facility] weight 2020-07-11 13:20:00 142.6 [lb_av] [facility] temperature 2020-07-11 13:20:00 97.2 [degF] [facility] bmi 2020-07-11 13:20:00 24.47 kg/m2 [facility] oximetry 2020-07-11 13:20:00 99 % [facility] Procedures Procedure Date / Time Performed Performing Clinician Formerly [facility] e NOTICE OF PRIVACY 2019-08-10 13:42:13 Doctor Unassigned, No [facility] PRACTICES Name Medical Branch CONSENT/REFUSAL FOR 2019-08-10 13:41:53 [facility] TREATMENT ASSIGNMENT OF BENEFITS 2019-08-10 13:41:34 Doctor Unassigned, No [facility] Branch Encounters Start End Encounter Admission Attending Care Care Encounter Source Date/Time Date/Time Type Type Clinicians Facility Department ID 2022-09-14 Outpatient Gamez, STLMLC STLMLC [id number] Common 14:24:00 Avnee [id number] [facility] 2022-08-02 Outpatient Hoang, STLMLC STLMLC [id number] Common 16:00:00 [facility] [id number] [facility] 2022-05-18 Outpatient Jane, STLMLC STLMLC [id number] Common 14:57:00 Nissa [id number] [facility] 2022-05-05 Outpatient Jane, STLMLC STLMLC [id number] Common 10:19:00 Nissa [id number] [facility] 2022-03-25 Outpatient VELASCO, Na STLMLC STLMLC [id number] 2 Common 16:45:00 [id number] [facility] 2022-01-20 Outpatient Velasco, Na STLMLC STLMLC [id number] 2 Common 13:47:00 [id number] [facility] 2021-09-08 Outpatient Velasco, Na STLMLC STLMLC [id number] 2 Common 10:46:01 [facility] 2021-03-18 Outpatient Velasco, Na STLMLC STLMLC [id number] 2 Common 13:33:15 [facility] 2021-03-18 Outpatient Velasco, Na STLMLC STLMLC [id number] 2 Common 13:20:53 [facility] 2021-03-18 Outpatient Velasco, Na STLMLC STLMLC [id number] 2 Common 13:20:10 [id number] [facility] 2021-03-18 Outpatient Velasco, Na STLMLC STLMLC [id number] 2 Common 13:18:12 [facility] 2021-03-18 Outpatient Velasco, Na STLMLC STLMLC [id number] 2 Common 13:16:41 [id number] [facility] 2021-03-18 Outpatient Velasco, Na STLMLC STLMLC [id number] 2 Common 13:12:26 [id number] [facility] 2021-03-18 Outpatient Velasco, Na STLMLC STLMLC [id number] 2 Common 13:06:18 [id number] [facility] 2021-03-18 Outpatient Velasco, Na STLMLC STLMLC [id number] 2 Common 12:50:52 [id number] [facility] 2021-03-18 Outpatient Velsaco, Na STLMLC STLMLC [id number] 2 Common 12:50:03 [id number] [facility] 2021-03-18 Outpatient Velasco, Na STLMLC STLMLC [id number] 2 Common 12:39:34 [id number] [facility] 2021-03-18 Outpatient Velasco, Na STLMLC STLMLC [id number] 2 Common 12:38:55 [id number] [facility] 2021-03-18 Outpatient Velasco, Na STLMLC STLMLC [id number] 2 Common 12:37:19 [id number] [facility] 2021-03-18 Outpatient Velasco, Na STLMLC STLMLC [id number] 2 Common 12:33:45 [id number] [facility] 2021-03-18 Outpatient Velasco, Na STLMLC STLMLC [id number] 2 Common 12:26:28 [id number] [facility] 2021-03-18 Outpatient Velasco, Na STLMLC STLMLC [id number] 2 Common 12:25:55 [id number] [facility] 2021-03-18 Outpatient Velasco, Na STLMLC STLMLC [id number] 2 Common 12:25:14 [id number] [facility] 2021-03-18 Outpatient Velasco, Na STLMLC STLMLC [id number] 2 Common 11:58:53 [id number] [facility] 2021-03-18 Outpatient Velasco, Na STLMLC STLMLC [id number] 2 Common 11:58:34 [id number] [facility] 2021-03-18 Outpatient Velasco, Na STLMLC STLMLC [id number] 2 Common 11:46:50 [id number] [facility] 2021-03-18 Outpatient Velasco, Na STLMLC STLMLC [id number] 2 Common 11:33:18 [id number] [facility] 2021-03-18 Outpatient Velasco, Na STLMLC STLMLC [id number] 2 Common 11:32:44 [id number] [facility] 2021-03-18 Outpatient Velasco, Na STLMLC STLMLC [id number] 2 Common 11:30:15 [id number] [facility] 2021-03-18 Outpatient Velasco, Na STLMLC STLMLC [id number] 2 Common 11:28:00 [id number] [facility] 2021-03-18 Outpatient Velasco, Na STLMLC STLMLC [id number] 2 Common 11:27:15 [id number] [facility] 2022-01-22 2022-01-22 SUB ANNUAL STLMLC STLMLC [id number] Common 00:00:00 00:00:00 MCR [facility] VISIT [facility] 2022-01-22 2022-01-22 OFFICE STLMLC STLMLC [id number] Co mmon 00:00:00 00:00:00 VISIT EST Spir it PT LEVEL 3 [facility] 2021-12-07 2021-12-07 Outpatient DMG DMG [id number] [facility] 00:00:00 00:00:00 [id number] [facility] 2021-06-23 2021-06-23 (TEL) STLMLC STLMLC [id number] Co mmon 00:00:00 00:00:00 [facility] 2020-10-09 2020-10-09 OFFICE STLMLC STLMLC [id number] Co mmon 00:00:00 00:00:00 VISIT EST Spir it PT LEVEL 3 - [facility] 2020-08-21 2020-08-21 OFFICE STLMLC STLMLC [id number] Co mmon 00:00:00 00:00:00 VISIT EST Spir it PT LEVEL 3 [facility] 2020-08-08 2020-08-08 (COVID STLMLC STLMLC [id number] Co mmon 00:00:00 00:00:00 Inj) COVID Spi rit Injection - [facility] 2020-07-11 2020-07-11 OFFICE STLMLC STLMLC [id number] Co mmon 00:00:00 00:00:00 VISIT EST Spir it PT LEVEL 3 [facility] 2020-07-11 2020-07-11 (COVID STLMLC STLMLC [id number] Co mmon 00:00:00 00:00:00 Inj) COVID Spi rit Injection [facility] 2020-06-02 2020-06-02 Outpatient STLMLC STLMLC [id number] Common 00:00:00 00:00:00 [facility] 2020-05-02 2020-05-02 Outpatient STLMLC STLMLC [id number] Common 00:00:00 00:00:00 [facility] 2020-04-02 2020-04-02 Outpatient STLMLC STLMLC [id number] Common 00:00:00 00:00:00 [facility] 2020-03-20 2020-03-20 Outpatient STLMLC STLMLC [id number] Common 00:00:00 00:00:00 [facility] 2020-03-10 2020-03-10 Outpatient STLMLC STLMLC [id number] Common 00:00:00 00:00:00 [facility] 2019-12-18 2019-12-18 Outpatient STLMLC STLMLC [id number] Common 00:00:00 00:00:00 [facility] 2019-09-17 2019-09-17 [facility] [id number] Common 11:40:00 11:40:[address] [place] [address] [facility] 2019-08-30 2019-08-30 [facility] [id number] Common 16:20:00 16:20:[address] [employer] [address] [facility] 2019-08-14 2019-08-14 [facility] [id number] Common 13:40:00 13:40:[address] [employer] [facility] 2019-08-10 2019-08-10 [facility] [id number] Univers 08:40:00 08:40:00 Encounter M Given [id number] ity of [place] [id number] [facility] [id number] [address] 2019-08-10 2019-08-10 [facility] [id number] Univers 08:40:00 08:40:00 Encounter M Given [id number] [facility] [place] [id number] [facility] [id number] [address] 2019-08-10 2019-08-10 [facility] [id number] 08:40:00 08:40:00 Encounter M Given [id number] [place] [id number] [place] [id number] 2019-08-10 2019-08-10 [facility] [id number] 08:40:00 08:40:00 Encounter M Given [id number] [place] [id number] [place] [id number] 2019-08-10 2019-08-10 [id number] Univers 00:00:00 00:00:[address] [facility] 2019-04-05 2019-04-05 [facility] [id number] Common 08:48:00 08:48:[address] [employer] [facility] 2019-01-26 2019-01-26 [facility] [id number] Common 13:20:00 13:20:00 [place] [address] [facility] 2018-12-19 2018-12-19 [facility] [id number] Common 09:48:00 09:48:00 [place] [address] [facility] 2018-10-27 2018-10-27 [facility] [id number] Common 14:00:00 14:00:00 [place] [address] [facility] 2018-09-26 2018-09-26 [facility] [id number] Common 16:40:00 16:40:00 [place] [address] [facility] 2018-06-12 2018-06-12 [facility] [id number] Common 13:00:00 13:00:00 [place] [address] [facility] 2018-05-09 2018-05-09 [facility] [id number] Common 14:00:00 14:00:00 [place] [address] [facility] 2018-03-03 2018-03-03 [facility] [id number] Common 10:17:00 10:17:00 [place] [address] [facility] 2018-02-07 2018-02-07 [facility] [id number] Common 14:30:00 14:30:00 [place] [address] [facility] 2017-11-08 2017-11-08 [facility] [id number] Common 15:30:00 15:30:00 [place] [address] [facility] 2017-09-13 2017-09-13 [facility] [id number] Common 13:30:00 13:30:00 [facility] 2017-08-01 2017-08-01 [facility] [id number] Common 14:15:00 14:15:00 [place] [address] [facility] 2017-05-25 2017-05-25 Outpatient Mathew Carmonat [id number] Common 14:30:00 14:30:00 t [place] [facility] it Drive [facility] Results This patient has no known results.
[2022-09-29] MEDS ORDERED: cloNIDine HCL 0.1 MG TAB ONE (16:13)
--- NOTE | 2022-09-29 16:16 | RAD REPORT ---
EXAM DESCRIPTION: CT - Head Brain Wo Cont - 09/29/2022 4:08 pm CLINICAL HISTORY: CONFUSED COMPARISON: No comparisons TECHNIQUE: All CT scans are performed using dose optimization technique as appropriate and may inclu de automated exposure control or mA/KV adjustment according to patient size. FINDINGS: No intracranial hemorrhage, hydrocephalus or extra-axial fluid collection.No areas of brai n edema or evidence of midline shift. Moderate chronic small vessel ischemic changes. The paranasal sinuses and mastoids are clear. The calvarium is intact. IMPRESSION: No acute intracranial abnormality. Moderate chronic small vessel ischemic changes.
--- NOTE | 2022-09-29 16:44 | ER ---
Nurse's Notes [facility] Name: Marilin Conner Age: 71 yrs Sex: Female : 1950 Arrival Date: 09/29/2022 Time: 15:06 Bed 16 Private MD: Diagnosis: Essential (primary) hypertension;Headache Presentation: 09/29 15:24 Chief complaint: Patient states: "There is nothing wrong with me. The doctor made me cm10 come because my blood pressure was elevated and I have a headache." Pt states that her headache started this morning. Pt states that she did not take her BP medicine this morning. Coronavirus screen: Vaccine status: Patient reports being unvaccinated. Ebola Screen: Patient denies travel to an Ebola-affected area in the 21 days before illness onset. No symptoms or risks identified at this time. Initial Sepsis Screen: Does the patient meet any 2 criteria? No. Patient's initial sepsis screen is negative. Does the patient have a suspected source of infection? No. Patient's initial sepsis screen is negative. Risk Assessment: Do you want to hurt yourself or someone else? Patient reports no desire to harm self or others. Onset of symptoms was September 29, 2022. 15:24 Method Of Arrival: Ambulatory cm10 15:24 Acuity: JUAN C 3 cm10 Triage Assessment: 17:03 Headache History: The patient has had previous headaches and this one is similar to mb9 previous episodes. General: Appears in no apparent distress. comfortable, Behavior is calm, cooperative, appropriate for age. Pain: Also complains of no other associated symptoms. Pain: Denies pain. Historical: - Allergies: 15:27 Meperidine; cm10 - PMHx: 15:27 Hypertensive disorder; kidney disease; cm10 - PSHx: 15:27 section; Total abdominal hysterectomy; cm10 - Immunization history:: Adult Immunizations unknown. - Social history:: Smoking status: Patient denies any tobacco usage or history of. - Family history:: not pertinent. Screenin:05 [facility] ED Fall Risk Assessment (Adult) History of falling in the last 3 months, mb9 including since admission No falls in past 3 months (0 pts). Abuse screen: Denies threats or abuse. Denies injuries from another. Nutritional screening: No deficits noted. Tuberculosis screening: No symptoms or risk factors identified. Assessment: 16:05 General: Appears in no apparent distress. comfortable, Behavior is calm, cooperative, mb9 appropriate for age. Pain: Complains of pain in face Pain does not radiate. Pain currently is 8 out of 10 on a pain scale. Quality of pain is described as throbbing. Neuro: Level of Consciousness is awake, alert, obeys commands, Oriented to person, place, time, situation. Cardiovascular: Capillary refill < 3 seconds Patient's skin is warm and dry. Respiratory: Airway is patent Respiratory effort is even, unlabored. GI: Abdomen is round non-distended. : No signs and/or symptoms were reported regarding the genitourinary system. EENT: No signs and/or symptoms were reported regarding the EENT system. Derm: No signs and/or symptoms reported regarding the dermatologic system. Musculoskeletal: No signs and/or symptoms reported regarding the musculoskeletal system. Vital Signs: 15:24 BP 224 / 68; Pulse 58; Resp 18; Temp 97.9(TE); Pulse Ox 100% on R/A; Weight 59.42 kg; cm10 Height 5 ft. 2 in. ; Pain 3/10; 16:04 BP 198 / 75; mb9 16:50 BP 190 / 62; Pulse 61; Resp 17; Pulse Ox 100% on R/A; mb9 15:24 Body Mass Index 23.96 (59.42 kg, 157.48 cm) cm10 15:24 Pain Scale: Adult cm10 ED Course: 15:09 Patient arrived in ED. im 15:24 Marbin Luna MD is Attending Physician. cp3 15:27 Triage completed. cm10 15:28 Arm band placed on Patient placed in an exam room. cm10 15:55 Josephine Major RN is Primary Nurse. mb9 16:05 Patient has correct armband on for positive identification. Placed in gown. Bed in low mb9 position. Call light in reach. Side rails up X2. monitor tech on. Pulse ox on. NIBP on. Door closed. Noise minimized. Warm blanket given. 16:05 No provider procedures requiring assistance completed. mb9 16:10 CT Head Brain wo Cont In Process Unspecified. EDMS 17:03 Patient did not have IV access during this emergency room visit. mb9 Administered Medications: 16:04 Drug: cloNIDine PO 0.2 mg Route: PO; mb9 Medication: 16:05 VIS not applicable for this client. mb9 Outcome: 16:43 Discharge ordered by . elvira 17:03 Discharged to home ambulatory. mb9 17:03 Condition: stable 17:03 Discharge instructions given to patient, Instructed on discharge instructions, follow up and referral plans. Demonstrated understanding of instructions, follow-up care. 17:03 Patient left the ED. mb9 Signatures: Dispatcher [employer] Marbin Felix MD MD cp3 Moriah, Josephine Billingsley RN RN mb9 Herlinda Reyes Clarissa RN RN cm10
--- NOTE | 2022-09-29 16:44 | EDPHYS ---
Physician Documentation [facility] Name: Marilin Conner Age: 71 yrs Sex: Female : 1950 Arrival Date: 09/29/2022 Time: 15:06 Bed 16 Private MD: ED Physician Marbin Luna HPI: 09/29 16:55 This 71 yrs old Female presents to ER via Ambulatory with complaints of High cp3 Blood Pressure, Headache. 16:55 The patient is a 71-year-old female with a history of hypertension and chronic kidney cp3 disease who presents to the ED from her primary care doctor's office secondary to elevated blood pressure reading with a systolic above 200 and a generalized headache with no associated neurocomplaints. 16:56 The patient endorses that she did not take her blood pressure medication and was found cp3 to have elevated blood pressure reading in the doctor's office and her primary then urged her to come to the emergency department for evaluation and treatment. The patient denies any facial droop, neurologic change, extremity weakness, gait abnormality, dizziness. The patient describes her headache as generalized aching rated at 3 out of 10 without radiation to the neck. No neck pain or stiffness. Patient has had similar headaches in the past. Historical: - Allergies: 15:27 Meperidine; cm10 - PMHx: 15:27 Hypertensive disorder; kidney disease; cm10 - PSHx: 15:27 section; Total abdominal hysterectomy; cm10 - Immunization history:: Adult Immunizations unknown. - Social history:: Smoking status: Patient denies any tobacco usage or history of. - Family history:: not pertinent. ROS: 16:58 Constitutional: Negative for fever, chills, and weight loss, Eyes: Negative for injury, cp3 pain, redness, and discharge, ENT: Negative for injury, pain, and discharge, Neck: Negative for injury, pain, and swelling, Cardiovascular: Negative for chest pain, palpitations, and edema, Respiratory: Negative for shortness of breath, cough, wheezing, and pleuritic chest pain, Abdomen/GI: Negative for abdominal pain, nausea, vomiting, diarrhea, and constipation, Back: Negative for injury and pain, : Negative for injury, bleeding, discharge, and swelling, MS/Extremity: Negative for injury and deformity, Skin: Negative for injury, rash, and discoloration. 16:58 Neuro: Positive for Generalized headache and elevated blood pressure. Exam: 16:58 Constitutional: This is a well developed, well nourished patient who is awake, alert, cp3 and in no acute distress. Head/Face: Normocephalic, atraumatic. Eyes: Pupils equal round and reactive to light, extra-ocular motions intact. Lids and lashes normal. Conjunctiva and sclera are non-icteric and not injected. Cornea within normal limits. Periorbital areas with no swelling, redness, or edema. ENT: Nares patent. No nasal discharge, no septal abnormalities noted. Tympanic membranes are normal and external auditory canals are clear. Oropharynx with no redness, swelling, or masses, exudates, or evidence of obstruction, uvula midline. Mucous membranes moist. Neck: Trachea midline, no thyromegaly or masses palpated, and no cervical lymphadenopathy. Supple, full range of motion without nuchal rigidity, or vertebral point tenderness. No Meningismus. Chest/axilla: Normal chest wall appearance and motion. Nontender with no deformity. No lesions are appreciated. Cardiovascular: Regular rate and rhythm with a normal S1 and S2. No gallops, murmurs, or rubs. Normal PMI, no JVD. No pulse deficits. Respiratory: Lungs have equal breath sounds bilaterally, clear to auscultation and percussion. No rales, rhonchi or wheezes noted. No increased work of breathing, no retractions or nasal flaring. Abdomen/GI: Soft, non-tender, with normal bowel sounds. No distension or tympany. No guarding or rebound. No evidence of tenderness throughout. Back: No spinal tenderness. No costovertebral tenderness. Full range of motion. Skin: Warm, dry with normal turgor. Normal color with no rashes, no lesions, and no evidence of cellulitis. MS/ Extremity: Pulses equal, no cyanosis. Neurovascular intact. Full, normal range of motion. Neuro: Awake and alert, GCS 15, oriented to person, place, time, and situation. Cranial nerves II-XII grossly intact. Motor strength 5/5 in all extremities. Sensory grossly intact. Cerebellar exam normal. Normal gait. Psych: Awake, alert, with orientation to person, place and time. Behavior, mood, and affect are within normal limits. Vital Signs: 15:24 BP 224 / 68; Pulse 58; Resp 18; Temp 97.9(TE); Pulse Ox 100% on R/A; Weight 59.42 kg; cm10 Height 5 ft. 2 in. ; Pain 3/10; 16:04 BP 198 / 75; mb9 16:50 BP 190 / 62; Pulse 61; Resp 17; Pulse Ox 100% on R/A; mb9 15:24 Body Mass Index 23.96 (59.42 kg, 157.48 cm) cm10 15:24 Pain Scale: Adult cm10 MDM: 15:49 Patient medically screened. cp3 16:58 Differential diagnosis: Differential diagnosis includes hypertensive urgency, malignant cp3 hypertension, acute on chronic kidney disease, medication noncompliance. The patient endorses she is willing to stay for of brain scan and a dose of blood pressure medication. Data reviewed: vital signs, nurses notes. Consideration of Admission/Observation Hospitalization considered along with CBC, metabolic panel, urine, EKG but patient has declined. The patient endorses she has a with dementia at home and needs to go home if there is no evidence of stroke. Independent interpretation of the following test(s) in the Emergency Department hospice care consultant: rate is 61 beats/min, Rhythm is normal sinus rhythm, with no ectopy. Test considered but Not performed: Labs: Labs, EKGpatient declined . Response to treatment: the patient's symptoms have mildly improved after treatment. ED course: Patient's headache is resolved at time of discharge and blood pressure is improved with a systolic of 190. 09/29 15:50 Order name: CT Head Brain wo Cont; Complete Time: 16:40 cp3 Administered Medications: 16:04 Drug: cloNIDine PO 0.2 mg Route: PO; mb9 Disposition Summary: 09/29/22 16:43 Discharge Ordered Location: Home cp3 Condition: Stable cp3 Diagnosis - Essential (primary) hypertension cp3 - Headache cp3 Followup: cp3 - With: Private Physician - When: Upon discharge from the Emergency Department - Reason: If symptoms return Discharge Instructions: - Discharge Summary Sheet cp3 - General Headache Without Cause cp3 - Hypertension, Adult cp3 Forms: - Medication Reconciliation Form cp3 - Thank You Letter cp3 - Antibiotic Education cp3 - Prescription Opioid Use cp3 - Patient Portal Instructions cp3 Signatures: Dispatcher [employer] EDArmin Mcelroya, MD MD cp3 Moriah, Josephine Billingsley, RN RN mb9 Brooke Vieyra RN RN cm10
[2022-09-29 17:39] VITALS: TEMP 97.9; O2SAT 100
[2022-09-29 17:42] VITALS: BP 190/62
== END 2022-09-29 17:03 | disposition home or self-care (01) ==
LOC: ER 15:06
DX: I10 Essential (primary) hypertension (principal); R51.9 Headache, unspecified; N18.9 Chronic kidney disease, unspecified; Z88.8 Allergy status to other drugs, medicaments and biological substances
CPT/HCPCS: 70450